=== PATIENT | male | born 1950 | race Caucasian/White ===

== ENCOUNTER 2016-10-15 06:50 | Day surgery (SDC) | payer MEDICARE, OTHER ==
[2016-10-11 11:35] VITALS: BMI 27.7
[~2016-10-15 06:50] MED LIST: LACTATED RINGERS 1,000 ML IV SCH; LIDOCAINE 1% 20 ML VIAL (10MG/ML) FOR IV START INTRADERMA PRN
[2016-10-15 07:10] VITALS: TEMP 97
[2016-10-15] MEDS ORDERED: PROPOFOL 10 MG/ML 20 ML VIAL IV ONE (07:43)
--- NOTE | 2016-10-15 07:56 | P.GSHP ---
History of Present Illness H&P Date: 10/15/16 Chief Complaint: History of colon polyps This is a 66-year-old male who presents today for colonoscopy. Patient's. History of colon polyps. His last colonoscopy was 3 years ago. Past Medical History Past Medical History: Coronary Artery Disease (CAD), Cancer, Diabetes Mellitus, Hyperlipidemia, Hypertension, Osteoarthritis (OA), Sleep Apnea/CPAP/BIPAP Additional Past Medical History / Comment(s): C-PAP , SKIN CANCER History of Any Multi-Drug Resistant Organisms: None Reported Past Surgical History: Hernia Repair, Tonsillectomy Additional Past Surgical History / Comment(s): COLONOSCOPY , HIATAL HERNIA REPAIR , TATI CARPAL TUNNEL RELEASE , ARTHROSCOPIC RIGHT SHOULDER Past Anesthesia/Blood Transfusion Reactions: No Reported Reaction Past Psychological History: Anxiety, Depression Additional Psychological History / Comment(s): "OCD" Smoking Status: Former smoker Past Alcohol Use History: Rare Additional Past Alcohol Use History / Comment(s): STARTED SMOKING AT AGE 10 QUIT AT AGE 42 SMOKED 2PPD Past Drug Use History: None Reported - Past Family History Brother(s) Family Medical History: Cancer Medications and Allergies Home Medications Medication Instructions Recorded Confirmed Type Aspirin EC [Ecotrin Low Dose] 81 mg PO DAILY 10/11/16 10/15/16 History Atorvastatin [Lipitor] 20 mg PO HS 10/11/16 10/15/16 History Finasteride [Proscar] 5 mg PO DAILY 10/11/16 10/15/16 History Glimepiride [Amaryl] 1 mg PO AC-[id number] 10/11/16 10/15/16 History Levothyroxine Sodium [Synthroid] 50 mcg PO DAILY 10/11/16 10/15/16 History Terazosin HCl [Hytrin] 10 mg PO HS 10/11/16 10/15/16 History buPROPion HCL [Wellbutrin XL] 150 mg PO DAILY 10/11/16 10/15/16 History fluvoxaMINE MALEATE [Fluvoxamine 100 mg PO DAILY 10/11/16 10/15/16 History Maleate] metFORMIN HCL 1,000 mg PO BID 10/11/16 10/15/16 History Allergies Allergy/AdvReac Type Severity Reaction Status Date / Time No Known Allergies Allergy Verified 10/11/16 10:55 Surgical - Exam Vital Signs Temp Pulse Resp BP Pulse Ox 97.0 F L 88 20 139/72 95 10/15/16 07:05 10/15/16 07:05 10/15/16 07:05 10/15/16 07:05 10/15/16 07:05 - General well developed, no distress - Eyes PERRL - ENT normal pinna - Neck no masses - Respiratory normal expansion - Cardiovascular Rhythm: regular - Abdomen Abdomen: soft, non tender Assessment and Plan Plan: History of colon polyps. We'll perform colonoscopy.
--- NOTE | 2016-10-15 08:08 | P.OP ---
Date of Procedure: 10/15/16 Preoperative Diagnosis: History of colonic Polyps Postoperative Diagnosis: Rectal polyp Mild diverticulosis Procedure(s) Performed: Colonoscopy Implants: Anesthesia: MAC Surgeon: William Barnett Pathology: other (Rectal polyp) Condition: stable Disposition: PACU Indications for Procedure: Operative Findings: Description of Procedure: The patient's placed on the endoscopy table lateral position. He received IV sedation. Digital rectal exam was performed which revealed no abnormalities. The prostate was symmetric without nodules. The flexible colonoscope was then placed patient anus and passed throughout the entire colon. The ileocecal valve was visualized. The cecum, ascending and transverse colon appeared normal. In the descending and sigmoid colon there is mild diverticulosis. Scope was then brought back the rectum and a small sessile polyp seen this removed with a forcep. Scope was withdrawn for patient.
[2016-10-15 08:25] VITALS: BP 115/65; PULSE 78; RESP 16
--- NOTE | 2016-10-15 08:46 | P.OP ---
Date of Procedure: 10/15/16 Preoperative Diagnosis: Cholecystitis Postoperative Diagnosis: Cholecystitis Procedure(s) Performed: Laparoscopic cholecystectomy Implants: Anesthesia: EVELYNE Surgeon: William Barnett Estimated Blood Loss (ml): 5 Pathology: other (Gallbladder) Condition: stable Disposition: PACU Indications for Procedure: Operative Findings: Description of Procedure: The patient was placed on the operating table. The patient received a general endotracheal tube anesthesia. The patients abdomen was prepped and draped in the usual sterile fashion. Through an infraumbilical stab incision, the fascia of the anterior abdominal wall was grasped with a pair of Kochers and then the Veress needle was placed in the peritoneal cavity. Position of the Veress needle was confirmed with positive drop test. The abdomen was then insufflated. After adequate insufflation, the 10 mm trocar was placed in the peritoneal cavity. Following this the laparoscope was placed in the peritoneal cavity. The patient was placed in the head-up, right side up position and then a 5 mm trocar was placed in the right lateral and right subcostal position under direct visualization. A 8 mm trocar was placed in the epigastric position. The gallbladder was grasped in the fundus and infundibulum. Traction on the gallbladder was placed in the lateral and the cephalad positions. The triangle of Calot was visualized.. The cystic duct was bluntly dissected until the union of the cystic duct and common bile duct was seen. The cystic duct was then divided and sealed with the Harmonic scissors. A PDS Endoloop was then placed throughout the cystic duct stump. The cystic artery divided and sealed with the Harmonic scissors. The gallbladder was then removed from the liver bed using Harmonic scissors. The gallbladder was then extracted through the epigastric port site. Operative field was checked for any bleeding spots and Harmonic scissors was used to coagulate the liver bed. The abdomen was irrigated. The trocars were removed. The skin was closed using interrupted 3-0 Vicryl suture. Dermabond dressing were applied. The patient tolerated the procedure well.
== END 2016-10-15 08:53 | disposition home or self-care (01) ==
LOC: ORWHC2ENDO 06:50
PROVIDERS: ATTEND Surgery
DX: Z12.11 Encounter for screening for malignant neoplasm of colon (principal); K57.30 Diverticulosis of large intestine without perforation or abscess without bleeding; K62.1 Rectal polyp; Z86.010 Personal history of colon polyps; I25.10 Atherosclerotic heart disease of native coronary artery without angina pectoris; I10 Essential (primary) hypertension; Z87.891 Personal history of nicotine dependence; E78.5 Hyperlipidemia, unspecified; G47.33 Obstructive sleep apnea (adult) (pediatric); Z99.89 Dependence on other enabling machines and devices; E11.9 Type 2 diabetes mellitus without complications; Z79.84 Long term (current) use of oral hypoglycemic drugs; E07.9 Disorder of thyroid, unspecified; F32.9 Major depressive disorder, single episode, unspecified; F41.9 Anxiety disorder, unspecified; Z79.82 Long term (current) use of aspirin; Z79.899 Other long term (current) drug therapy
CPT/HCPCS: 45380; J2704; 88305

== ENCOUNTER 2023-04-06 17:07 | Inpatient (IN) | payer MEDICARE, OTHER ==
--- NOTE | 2023-04-06 17:17 | ED ---
Recheck HPI - General Chief Complaint: Fall Stated Complaint: L1 Fracture Time Seen by Provider: 04/06/23 17:10 Source: patient, EMS, RN notes reviewed, old records reviewed Mode of arrival: EMS Limitations: no limitations - History of Present Illness Initial Comments: This is a 72-year-old male the ER today. Patient accepted in transfer from outside facility for evaluation after a fall. Patient has reported L1 burst fracture and is transferred for back surgical evaluationT patient has back pain but is improved here in the ER patient has back pain but is improved here in the ER patient allegedly had a fall MD Complaint: other (L1 burst fracture) -: hour(s) (L1 burst fracture) Returns Today for: persistent/worsening pain related to initial visit Symptoms Since Prior Visit: worsening pain Context: planned re-check Associated Symptoms: none Treatments Prior to Arrival: Given Pain Meds on - Related Data Home Medications Medication Instructions Recorded Confirmed Aspirin EC [Ecotrin Low Dose] 81 mg PO DAILY 10/11/16 04/06/23 Atorvastatin [Lipitor] 20 mg PO HS 10/11/16 04/06/23 Finasteride [Proscar] 5 mg PO DAILY 10/11/16 04/06/23 Levothyroxine Sodium [Synthroid] 50 mcg PO DAILY 10/11/16 04/06/23 Terazosin HCl [Hytrin] 10 mg PO HS 10/11/16 04/06/23 buPROPion HCL [Wellbutrin XL] 150 mg PO DAILY 10/11/16 04/06/23 fluvoxaMINE MALEATE [Fluvoxamine 100 mg PO DAILY 10/11/16 04/06/23 Maleate] metFORMIN HCL [Glucophage] 1,000 mg PO DAILY 10/11/16 04/06/23 Pioglitazone [Actos] 30 mg PO DAILY 04/06/23 04/06/23 Previous Rx's Medication Instructions Recorded Cyclobenzaprine [Flexeril] 5 mg PO TID #21 tablet 04/11/23 HYDROcodone/APAP 7.5-325MG [[place] 1 tab PO Q6HR PRN #28 tab 04/11/23 7.5-325] Sennosides/Docusate Sodium [Senna 1 each PO DAILY #20 capsule 04/11/23 Plus 8.6-50 mg Softgel] cefaDROXiL [Duricef] 500 mg PO Q12HR 5 Days #10 cap 04/11/23 Allergies Allergy/AdvReac Type Severity Reaction Status Date / Time No Known Allergies Allergy Verified 04/06/23 19:48 Review of Systems ROS Statement: Those systems with pertinent positive or pertinent negative responses have been documented in the HPI. ROS Other: All systems not noted in ROS Statement are negative. Past Medical History Past Medical History: Coronary Artery Disease (CAD), Cancer, Diabetes Mellitus, Hyperlipidemia, Hypertension, Osteoarthritis (OA), Sleep Apnea/CPAP/BIPAP Additional Past Medical History / Comment(s): C-PAP , SKIN CANCER History of Any Multi-Drug Resistant Organisms: None Reported Past Surgical History: Hernia Repair, Tonsillectomy Additional Past Surgical History / Comment(s): COLONOSCOPY , HIATAL HERNIA REPAIR , TATI CARPAL TUNNEL RELEASE , ARTHROSCOPIC RIGHT SHOULDER Past Anesthesia/Blood Transfusion Reactions: No Reported Reaction Past Psychological History: Anxiety, Depression Past Alcohol Use History: Rare Past Drug Use History: None Reported - Past Family History Brother(s) Family Medical History: Cancer General Exam Limitations: no limitations General appearance: alert, in no apparent distress Head exam: Present: atraumatic, normocephalic, normal inspection Eye exam: Present: normal appearance, PERRL, EOMI. Absent: scleral icterus, con junctival injection, periorbital swelling ENT exam: Present: normal exam, mucous membranes moist Neck exam: Present: normal inspection. Absent: tenderness, meningismus, lymphadenopathy Respiratory exam: Present: normal lung sounds bilaterally. Absent: respiratory distress, wheezes, rales, rhonchi, stridor Cardiovascular Exam: Present: regular rate, normal rhythm, normal heart sounds. Absent: systolic murmur, diastolic murmur, rubs, gallop, clicks GI/Abdominal exam: Present: soft, normal bowel sounds. Absent: distended, tenderness, guarding, rebound, rigid Extremities exam: Present: normal inspection, full ROM, normal capillary refill. Absent: tenderness, pedal edema, joint swelling, calf tenderness Back exam: Present: normal inspection Neurological exam: Present: alert, oriented X3, CN II-XII intact Psychiatric exam: Present: normal affect, normal mood Skin exam: Present: warm, dry, intact, normal color. Absent: rash Course Vital Signs 04/06/23 04/06/23 04/06/23 17:10 18:23 19:54 Temperature 97.9 F Pulse Rate 116 H 96 102 H Respiratory 18 18 18 Rate Blood Pressure 131/68 123/69 109/70 O2 Sat by Pulse 93 L 94 L 95 Oximetry 04/06/23 21:02 Temperature 97.9 F Pulse Rate 94 Respiratory 16 Rate Blood Pressure 134/73 O2 Sat by Pulse 95 Oximetry - Reevaluation(s) Reevaluation #1: 04/06/23 18:56 Medical records reviewed Reevaluation #2: 04/06/23 18:56 Patient's back pain is improved Reevaluation #3: 04/06/23 18:56 Patient informed of results and questions answered Reevaluation #4: Was pt. sent in by a medical professional or institution (, MINO, AGRICULTURAL RESEARCH DIRECTOR, urgent care, hospital, or half-way...) When possible be specific @ -no Did you speak to anyone other than the patient for history (EMS, parent, family, police, friend...)? What history was obtained from this source @ -no Did you review nursing and triage notes (agree or disagree)? Why? @ -agree Are old charts reviewed (outside hosp., previous admission, EMS record, old EKG, old radiological studies, urgent care reports/EKG's, half-way records)? Report findings @ -yes Differential Diagnosis (chest pain, altered mental status, abdominal pain women, abdominal pain men, vaginal bleeding, weakness, fever, dyspnea, syncope, headache, dizziness, GI bleed, back pain, seizure, CVA, palpatations, mental health, musculoskeletal)? @ -prior EKG interpreted by me (3pts min.). @ -yes X-rays interpreted by me (1pt min.). @ -no CT interpreted by me (1pt min.). @ -no U/S interpreted by me (1pt. min.). @ -no What testing was considered but not performed or refused? (CT, X-rays, U/S, labs)? Why? @ -none What meds were considered but not given or refused? Why? @ -none Did you discuss the management of the patient with other professionals (professionals i.e. MINO Ferrer, AGRICULTURAL RESEARCH DIRECTOR, lab, RT, psych nurse, manager social responsibility, pipe smoking machine operator, teacher, toxics program officer, test case developer)? Give summary @ -no Was smoking cessation discussed for >3mins.? @ -no Was critical care preformed (if so, how long)? @ -no Were there social determinants of health that impacted care today? How? (Homelessness, low income, unemployed, alcoholism, drug addiction, transportation, low edu. Level, literacy, decrease access to med. care, halfway, rehab)? @ -none Was there de-escalation of care discussed even if they declined (Discuss DNR or withdrawal of care, Hospice)? DNR status @ -no What co-morbidities impacted this encounter? (DM, HTN, Smoking, COPD, CAD, Cancer, CVA, ARF, Chemo, Hep., AIDS, mental health diagnosis, sleep apnea, morbid obesity)? @ -none Was patient admitted / discharged? Hospital course, mention meds given and route, prescriptions, significant lab abnormalities, going to OR and other pertinent info. @ - 72 male will be admitted to orthopedic surgery under trauma evaluation after fall with lumbar 1 burst fracture Admitted Undiagnosed new problem with uncertain prognosis? @ -no Drug Therapy requiring intensive monitoring for toxicity (Heparin, Nitro, Insulin, Cardizem)? @ -no Were any procedures done? @ -no Diagnosis/symptom? @ -Back pain, burst fracture L1 Acute, or Chronic, or Acute on Chronic? @ -Acute Uncomplicated (without systemic symptoms) or Complicated (systemic symptoms)? @ -Complicated Side effects of treatment? @ -no Exacerbation, Progression, or Severe Exacerbation? @ -exacerbation Poses a threat to life or bodily function? How? (Chest pain, USA, SC, pneumonia, PE, COPD, DKA, ARF, appy, cholecystitis, CVA, Diverticulitis, Homicidal, Suicidal, threat to staff... and all critical care pts) @ -no Reevaluation #5: Differential Back Pain: Strain, zoster, cauda equina syndrome, epidural abscess, vertebral osteomyelitis, discitis, fracture, subluxation, disc herniation, DJD, spinal stenosis, dissection, AAA, pancreatitis, peptic ulcer disease, pyelonephritis, kidney stone, this is not meant to be an all-inclusive list. - Consultations Consultation #1: Spoke with Dr. Goodman randhawa prior to transfer who did agree to admit the patient to himself as part of trauma evaluation secondary to fall Medical Decision Making - Medical Decision Making 72 male will be admitted to orthopedic surgery under trauma evaluation after fall with lumbar 1 burst fracture - Lab Data Result diagrams: 04/10/23 05:12 04/10/23 05:12 Lab Results 04/07/23 04/07/23 04/07/23 Range/Units 05:33 05:33 05:50 WBC 6.87 (4.50-10.00) X 10*3/uL RBC 3.69 L (4.40-5.60) X 10*6/uL Hgb 11.2 L (13.0-17.0) g/dL Hct 35.3 L (39.6-50.0) % MCV 95.7 (80.0-97.0) FL MCH 30.4 (27.0-32.0) pg MCHC 31.7 L (32.0-37.0) g/dL RDW 15.1 H (11.5-14.5) % Plt Count 155 (140-440) X 10*3/uL MPV 11.1 (9.5-12.2) FL Immature Gran % (Auto) 0.30 % Absolute Nucleated RBC 0 % Neutrophils % 71.4 % Lymphocytes % 16.7 % Monocytes % 9.8 % Eosinophils % 1.2 % Basophils % 0.6 % Immature Gran # 0.02 (0.00-0.04) X 10*3/uL Neutrophils # 4.91 (1.80-7.70) X 10*3/uL Lymphocytes # 1.15 (0.90-5.00) X 10*3/uL Monocytes # 0.67 (0.20-1.00) X 10*3/uL Eosinophils # 0.08 (0.04-0.35) X 10*3/uL Basophils # 0.04 (0.00-0.10) X 10*3/uL NRBC/100 WBC Diff 0 (0.00-0.01) X 10*3/uL Sodium 138 (135-145) mmol/L Potassium 4.1 (3.5-5.5) mmol/L Chloride 105 (96-109) mmol/L Carbon Dioxide 26.6 (21.6-31.8) mmol/L Anion Gap 6.40 (4.00-12.00) mmol/L BUN 13.3 (9.0-27.0) mg/dL Creatinine 0.9 (0.6-1.5) mg/dL Est GFR (CKD-EPI) 90 (>=60) Est GFR (CKD-EPI)AfAm (>60 ml/min/1.73 sqM) Est GFR (CKD-EPI)NonAf (>60 ml/min/1.73 sqM) BUN/Creatinine Ratio 14.78 (12.00-20.00) Ratio Glucose 102 (70-110) mg/dL POC Glucose (mg/dL) 105 (70-110) mg/dL POC Glu Core Shaper ID Dayana, Kalib Calcium 8.7 (8.7-10.3) mg/dL Phosphorus 3.5 (2.4-5.1) mg/dL Magnesium 1.8 (1.5-2.4) mg/dL Total Bilirubin 0.5 (0.3-1.2) mg/dL AST 22 (14-35) U/L ALT 25 (10-49) U/L Alkaline Phosphatase 71 (41-126) U/L Total Protein 5.7 L (6.2-8.2) g/dL Albumin 3.8 (3.8-4.9) g/dL Globulin 1.9 (1.6-3.3) g/dL Albumin/Globulin Ratio 2.00 (1.60-3.17) Ratio Blood Type Confirm 04/07/23 04/07/23 04/07/23 Range/Units 11:35 16:40 20:50 WBC (4.50-10.00) X 10*3/uL RBC (4.40-5.60) X 10*6/uL Hgb (13.0-17.0) g/dL Hct (39.6-50.0) % MCV (80.0-97.0) FL MCH (27.0-32.0) pg MCHC (32.0-37.0) g/dL RDW (11.5-14.5) % Plt Count (140-440) X 10*3/uL MPV (9.5-12.2) FL Immature Gran % (Auto) % Absolute Nucleated RBC % Neutrophils % % Lymphocytes % % Monocytes % % Eosinophils % % Basophils % % Immature Gran # (0.00-0.04) X 10*3/uL Neutrophils # (1.80-7.70) X 10*3/uL Lymphocytes # (0.90-5.00) X 10*3/uL Monocytes # (0.20-1.00) X 10*3/uL Eosinophils # (0.04-0.35) X 10*3/uL Basophils # (0.00-0.10) X 10*3/uL NRBC/100 WBC Diff (0.00-0.01) X 10*3/uL Sodium (135-145) mmol/L Potassium (3.5-5.5) mmol/L Chloride (96-109) mmol/L Carbon Dioxide (21.6-31.8) mmol/L Anion Gap (4.00-12.00) mmol/L BUN (9.0-27.0) mg/dL Creatinine (0.6-1.5) mg/dL Est GFR (CKD-EPI) (>=60) Est GFR (CKD-EPI)AfAm (>60 ml/min/1.73 sqM) Est GFR (CKD-EPI)NonAf (>60 ml/min/1.73 sqM) BUN/Creatinine Ratio (12.00-20.00) Ratio Glucose (70-110) mg/dL POC Glucose (mg/dL) 109 116 H 137 H (70-110) mg/dL POC Glu Core Shaper STARLA Hines, Ebony Hines, Opal Farah Calcium (8.7-10.3) mg/dL Phosphorus (2.4-5.1) mg/dL Magnesium (1.5-2.4) mg/dL Total Bilirubin (0.3-1.2) mg/dL AST (14-35) U/L ALT (10-49) U/L Alkaline Phosphatase (41-126) U/L Total Protein (6.2-8.2) g/dL Albumin (3.8-4.9) g/dL Globulin (1.6-3.3) g/dL Albumin/Globulin Ratio (1.60-3.17) Ratio Blood Type Confirm 04/08/23 04/08/23 04/08/23 Range/Units 05:47 11:27 11:27 WBC 6.5 (4.50-10.00) X 10*3/uL RBC 3.82 L (4.40-5.60) X 10*6/uL Hgb 11.6 L (13.0-17.0) g/dL Hct 36.3 L (39.6-50.0) % MCV 95.0 (80.0-97.0) FL MCH 30.5 (27.0-32.0) pg MCHC 32.1 (32.0-37.0) g/dL RDW 13.8 (11.5-14.5) % Plt Count 151 (140-440) X 10*3/uL MPV 8.3 (9.5-12.2) FL Immature Gran % (Auto) % Absolute Nucleated RBC % Neutrophils % 68 % Lymphocytes % 20 % Monocytes % 6 % Eosinophils % 2 % Basophils % 0 % Immature Gran # (0.00-0.04) X 10*3/uL Neutrophils # 4.4 (1.80-7.70) X 10*3/uL Lymphocytes # 1.3 (0.90-5.00) X 10*3/uL Monocytes # 0.4 (0.20-1.00) X 10*3/uL Eosinophils # 0.2 (0.04-0.35) X 10*3/uL Basophils # 0.0 (0.00-0.10) X 10*3/uL NRBC/100 WBC Diff (0.00-0.01) X 10*3/uL Sodium 137 (135-145) mmol/L Potassium 4.0 (3.5-5.5) mmol/L Chloride 105 (96-109) mmol/L Carbon Dioxide 27 (21.6-31.8) mmol/L Anion Gap 5 (4.00-12.00) mmol/L BUN 13 (9.0-27.0) mg/dL Creatinine 0.79 (0.6-1.5) mg/dL Est GFR (CKD-EPI) (>=60) Est GFR (CKD-EPI)AfAm >90 (>60 ml/min/1.73 sqM) Est GFR (CKD-EPI)NonAf 89 (>60 ml/min/1.73 sqM) BUN/Creatinine Ratio (12.00-20.00) Ratio Glucose 103 H (70-110) mg/dL POC Glucose (mg/dL) 111 H (70-110) mg/dL POC Glu Core Shaper ID Dayana, Kalib Calcium 8.9 (8.7-10.3) mg/dL Phosphorus (2.4-5.1) mg/dL Magnesium (1.5-2.4) mg/dL Total Bilirubin (0.3-1.2) mg/dL AST (14-35) U/L ALT (10-49) U/L Alkaline Phosphatase (41-126) U/L Total Protein (6.2-8.2) g/dL Albumin (3.8-4.9) g/dL Globulin (1.6-3.3) g/dL Albumin/Globulin Ratio (1.60-3.17) Ratio Blood Type Confirm 04/08/23 04/08/23 Range/Units 11:27 12:20 WBC (4.50-10.00) X 10*3/uL RBC (4.40-5.60) X 10*6/uL Hgb (13.0-17.0) g/dL Hct (39.6-50.0) % MCV (80.0-97.0) FL MCH (27.0-32.0) pg MCHC (32.0-37.0) g/dL RDW (11.5-14.5) % Plt Count (140-440) X 10*3/uL MPV (9.5-12.2) FL Immature Gran % (Auto) % Absolute Nucleated RBC % Neutrophils % % Lymphocytes % % Monocytes % % Eosinophils % % Basophils % % Immature Gran # (0.00-0.04) X 10*3/uL Neutrophils # (1.80-7.70) X 10*3/uL Lymphocytes # (0.90-5.00) X 10*3/uL Monocytes # (0.20-1.00) X 10*3/uL Eosinophils # (0.04-0.35) X 10*3/uL Basophils # (0.00-0.10) X 10*3/uL NRBC/100 WBC Diff (0.00-0.01) X 10*3/uL Sodium (135-145) mmol/L Potassium (3.5-5.5) mmol/L Chloride (96-109) mmol/L Carbon Dioxide (21.6-31.8) mmol/L Anion Gap (4.00-12.00) mmol/L BUN (9.0-27.0) mg/dL Creatinine (0.6-1.5) mg/dL Est GFR (CKD-EPI) (>=60) Est GFR (CKD-EPI)AfAm (>60 ml/min/1.73 sqM) Est GFR (CKD-EPI)NonAf (>60 ml/min/1.73 sqM) BUN/Creatinine Ratio (12.00-20.00) Ratio Glucose (70-110) mg/dL POC Glucose (mg/dL) 92 (70-110) mg/dL POC Glu Core Shaper ID Makayla Clark Calcium (8.7-10.3) mg/dL Phosphorus (2.4-5.1) mg/dL Magnesium (1.5-2.4) mg/dL Total Bilirubin (0.3-1.2) mg/dL AST (14-35) U/L ALT (10-49) U/L Alkaline Phosphatase (41-126) U/L Total Protein (6.2-8.2) g/dL Albumin (3.8-4.9) g/dL Globulin (1.6-3.3) g/dL Albumin/Globulin Ratio (1.60-3.17) Ratio Blood Type Confirm A Negative Disposition Clinical Impression: Fall, Lumbar burst fracture, Fracture of first lumbar vertebra Disposition: ADMITTED IP TO THIS [facility] Condition: Good Is patient prescribed a controlled substance at d/c from ED?: No Time of Disposition: 17:35
[2023-04-06] MEDS ORDERED: NALOXONE 0.4 MG/ML 1 ML VIAL IV PRN (17:35)
[2023-04-06] MEDS: ONDANSETRON 4 MG/2 ML VIAL IVP PRN (18:24)
[2023-04-06] MEDS: SODIUM CHLORIDE 0.9% 1,000 ML IV SCH (18:31)
[2023-04-06] MEDS: HYDROmorphone 0.5 MG/0.5 ML SYRINGE IVP PRN (21:11)
--- NOTE | 2023-04-06 23:00 | P.CONS ---
History of Present Illness - Reason for Consult Consult date: 04/06/23 Medical management - Chief Complaint Lumbar burst fracture/fall - History of Present Illness 72-year-old male, history of CAD, hypertension, hyperlipidemia, diabetes mellitus, sleep apnea, presents to the ER today. Patient accepted in transfer from outside facility for evaluation after a fall. Patient has reported L1 burst fracture and is transferred for back surgical evaluationT patient has back pain but is improved here in the ER patient has back pain but is improved here in the ER patient allegedly had a fall --In the outside facility workup revealed burst fracture of first lumbar vert ebra -- Patient was discussed with orthopedic surgery and was transferred to our facility for further treatment Review of Systems REVIEW OF SYSTEMS: CONSTITUTIONAL: No fever, no malaise, no fatigue. HEENT: No recent visual problems or hearing problems. Denied any sore throat. CARDIOVASCULAR: No chest pain, orthopnea, PND, no palpitations, no syncope. PULMONARY: No shortness of breath, no cough, no hemoptysis. GASTROINTESTINAL: No diarrhea, no nausea, no vomiting, no abdominal pain. NEUROLOGICAL: No headaches, no weakness, no numbness. HEMATOLOGICAL: Denies any bleeding or petechiae. GENITOURINARY: Denies any burning micturition, frequency, or urgency. MUSCULOSKELETAL/RHEUMATOLOGICAL: Denies any joint pain, swelling, or any muscle pain. ENDOCRINE: Denies any polyuria or polydipsia. The rest of the 14-point review of systems is negative. Past Medical History Past Medical History: Coronary Artery Disease (CAD), Cancer, Diabetes Mellitus, Hyperlipidemia, Hypertension, Osteoarthritis (OA), Sleep Apnea/CPAP/BIPAP Additional Past Medical History / Comment(s): C-PAP , SKIN CANCER History of Any Multi-Drug Resistant Organisms: None Reported Past Surgical History: Hernia Repair, Tonsillectomy Additional Past Surgical History / Comment(s): COLONOSCOPY , HIATAL HERNIA REPAIR , TATI CARPAL TUNNEL RELEASE , ARTHROSCOPIC RIGHT SHOULDER Past Anesthesia/Blood Transfusion Reactions: No Reported Reaction Past Psychological History: Anxiety, Depression Past Alcohol Use History: Rare Past Drug Use History: None Reported - Past Family History Brother(s) Family Medical History: Cancer Medications and Allergies Home Medications Medication Instructions Recorded Confirmed Type Aspirin EC [Ecotrin Low Dose] 81 mg PO DAILY 10/11/16 04/06/23 History Atorvastatin [Lipitor] 20 mg PO HS 10/11/16 04/06/23 History Finasteride [Proscar] 5 mg PO DAILY 10/11/16 04/06/23 History Levothyroxine Sodium [Synthroid] 50 mcg PO DAILY 10/11/16 04/06/23 History Terazosin HCl [Hytrin] 10 mg PO HS 10/11/16 04/06/23 History buPROPion HCL [Wellbutrin XL] 150 mg PO DAILY 10/11/16 04/06/23 History fluvoxaMINE MALEATE [Fluvoxamine 100 mg PO DAILY 10/11/16 04/06/23 History Maleate] metFORMIN HCL [Glucophage] 1,000 mg PO DAILY 10/11/16 04/06/23 History Pioglitazone [Actos] 30 mg PO DAILY 04/06/23 04/06/23 History Allergies Allergy/AdvReac Type Severity Reaction Status Date / Time No Known Allergies Allergy Verified 04/06/23 19:48 Physical Exam Vitals: Vital Signs Temp Pulse Pulse Resp BP BP Pulse Ox 04/06/23 21:24 97.9 F 108 H 18 126/70 96 04/06/23 21:02 97.9 F 94 16 134/73 95 04/06/23 19:54 102 H 18 109/70 95 04/06/23 18:23 96 18 123/69 94 L 04/06/23 17:10 97.9 F 116 H 18 131/68 93 L Intake and Output 04/06/23 04/06/23 04/06/23 06:59 14:59 22:59 Other: Weight 89.358 kg General appearance: alert, in no apparent distress Head exam: Present: atraumatic, normocephalic, normal inspection Eye exam: Present: normal appearance, PERRL, EOMI. Absent: scleral icterus, conjunctival injection, periorbital swelling ENT exam: Present: normal exam, mucous membranes moist Neck exam: Present: normal inspection. Absent: tenderness, meningismus, lymphadenopathy Respiratory exam: Present: normal lung sounds bilaterally. Absent: respiratory distress, wheezes, rales, rhonchi, stridor Cardiovascular Exam: Present: regular rate, normal rhythm, normal heart sounds. Absent: systolic murmur, diastolic murmur, rubs, gallop, clicks GI/Abdominal exam: Present: soft, normal bowel sounds. Absent: distended, tenderness, guarding, rebound, rigid Extremities exam: Present: normal inspection, full ROM, normal capillary refill. Absent: tenderness, pedal edema, joint swelling, calf tenderness Back exam: Present: normal inspection Neurological exam: Present: alert, oriented X3, CN II-XII intact Psychiatric exam: Present: normal affect, normal mood Skin exam: Present: warm, dry, intact, normal color. Absent: rash Assessment and Plan Assessment: 1. Fall/burst fracture L1 --Patient received IV Dilaudid in ED for pain control -Orthopedic surgery is consulted 2. Hyperlipidemia; Lipitor 20 mg p.o. nightly 3. Hypothyroidism; thyroxine 50 mcg daily 4. Hypertension; Hytrin 10 mg p.o. nightly 5. Urinary retention; Proscar 5 mg daily; Hytrin 10 mg p.o. nightly 6. Depression/anxiety; patient takes Wellbutrin XL 150 mg daily, Luvox 100 mg daily DVT prophylaxis; SCDs CODE STATUS;
[2023-04-07 05:53] LABS: Glucose,Whole Blood 105 mg/dL (70-110)
[2023-04-07] MEDS: LEVOTHYROXINE 50 MCG TAB PO SCH (06:40)
[2023-04-07] MEDS ORDERED: HYDROmorphone 1 MG/ML 1 ML SYRINGE IVP PRN (07:19)
[2023-04-07] MEDS ORDERED: SENNOSIDES 8.6 MG TAB PO PRN (07:27)
--- NOTE | 2023-04-07 07:27 | P.HPOR ---
History of Present Illness H&P Date: 04/07/23 Chief Complaint: Fall with trauma, increased back pain, L1 burst fracture History of Presenting Illness Patient is a pleasant 72-year-old male who was transferred to the ER from [facility] due to L1 burst fracture after a fall. Patient reports he was standing on a chair to change the battery and a smoke detector and his leg gave out and he fell backwards landing on his back and hitting his head. Patient reports he is unsure of loss of consciousness. Patient states that he did injure his left ankle, imaging taken at [facility] is negative for any fracture. Patient denies any numbness or tingling to the bilateral lower extremities. Patient lives at home with his spouse and is normally independent. Patient does have a past medical history of CAD, hypertension, hyperlipidemia, diabetes, sleep apnea with use of CPAP, and skin cancer. Patient does have orthopedic history of a right shoulder surgery. Patient seen and examined this morning. Patient is resting currently in bed. He does report increased pain in his lower back with any activity. Pain medications will be adjusted. Patient continues to deny any numbness or tingling to bilateral lower extremities. Patient does present with mild edema to the left ankle. Patient remains nothing by mouth since midnight for possible surgical intervention. [employer] found disc of imaging that was taken at [facility]. This has not been uploaded at this time. Repeat Lumbar CT will be obtained. Patient verbalizes understanding. Review of Systems Pertinent positives and negatives as discussed in HPI, a complete review of systems was performed and all other systems are negative. Physical Examination General: The patient is awake and alert, in no acute distress Skin: Skin is warm and dry with no obvious rashes or lesions. Eye: Pupils are equal, round and reactive to light, extra-ocular movements are intact; there is normal conjunctiva bilaterally. Neck: The neck is supple, there is no tenderness and ROM intact. Cardiovascular: There is a regular rate and rhythm. No murmur, rub or gallop is appreciated. Respiratory: Lungs are clear to auscultation, respirations are non-labored, breath sounds are equal. Gastrointestinal: Soft, non-distended, non-tender abdomen. Back: There is moderate to severe tenderness to palpation in the midline lumbar region. There is no obvious deformity. Musculoskeletal: ROM limited secondary to pain and stiffness. Shoulder abduction 5/5, elbow flexors 5/5, wrist dorsiflexors 5/5. finger abductor 5/5, network controller 5/5, hip flexor 5/5, knee flexor 5/5, ankle dorsiflexor 5/5, ankle plantarflexion 5/5 and extensor hallucis 5/5. Neurological: CN 2-12 intact. There are no obvious motor or sensory deficits. Movement and coordination equal and intact. Sensory exam to light touch intact C5-T1 and intact from L2-S1. Reflexes 2/4 in bilateral upper and lower extremities. Negative Hoffmans, babinski, and clonus signs. Psychiatric: Cooperative, appropriate mood & affect, normal judgment. Assessment and Plan Fall with trauma L1 burst fracture Increased back pain Left ankle pain Multiple medical comorbidities 1. Appreciate medical management 2. Prescription for LSO brace placed in chart. 3. CT scan of the Thoracic and Lumbar Spine has been ordered. 3. Pain management - IV dilaudid, [place] 7.5mg 4. GI prophylaxis - senna 5. DVT prophylaxis - mechanical 6. PT/OT - weightbearing as tolerated with a walker as needed. 7. Appreciate consult I reviewed and discussed this case with my attending Dr. Beebe, whom has reviewed this chart and films and is in agreement with assessment and plan of care as outlined above. I have personally seen and examined the patient, performed the documentation and the assessment and plan as written. Number of minutes spent on the visit: 20m. Past Medical History Past Medical History: Coronary Artery Disease (CAD), Cancer, Diabetes Mellitus, Hyperlipidemia, Hypertension, Osteoarthritis (OA), Sleep Apnea/CPAP/BIPAP Additional Past Medical History / Comment(s): C-PAP , SKIN CANCER History of Any Multi-Drug Resistant Organisms: None Reported Past Surgical History: Hernia Repair, Tonsillectomy Additional Past Surgical History / Comment(s): COLONOSCOPY , HIATAL HERNIA REPAIR , TATI CARPAL TUNNEL RELEASE , ARTHROSCOPIC RIGHT SHOULDER Past Anesthesia/Blood Transfusion Reactions: No Reported Reaction Past Psychological History: Anxiety, Depression Past Alcohol Use History: Rare Past Drug Use History: None Reported - Past Family History Brother(s) Family Medical History: Cancer Medications and Allergies Home Medications Medication Instructions Recorded Confirmed Type Aspirin EC [Ecotrin Low Dose] 81 mg PO DAILY 10/11/16 04/06/23 History Atorvastatin [Lipitor] 20 mg PO HS 10/11/16 04/06/23 History Finasteride [Proscar] 5 mg PO DAILY 10/11/16 04/06/23 History Levothyroxine Sodium [Synthroid] 50 mcg PO DAILY 10/11/16 04/06/23 History Terazosin HCl [Hytrin] 10 mg PO HS 10/11/16 04/06/23 History buPROPion HCL [Wellbutrin XL] 150 mg PO DAILY 10/11/16 04/06/23 History fluvoxaMINE MALEATE [Fluvoxamine 100 mg PO DAILY 10/11/16 04/06/23 History Maleate] metFORMIN HCL [Glucophage] 1,000 mg PO DAILY 10/11/16 04/06/23 History Pioglitazone [Actos] 30 mg PO DAILY 04/06/23 04/06/23 History Allergies Allergy/AdvReac Type Severity Reaction Status Date / Time No Known Allergies Allergy Verified 04/06/23 19:48
[2023-04-07] MEDS: buPROPion XL 150 MG TAB.ER.24H PO SCH (07:56)
[2023-04-07] MEDS: FINASTERIDE 5 MG TAB PO SCH (07:56)
--- NOTE | 2023-04-07 09:13 | CT ---
EXAMINATION TYPE: CT thor lumbar spine wo con CT DLP: 1607.6 mGycm, Automated exposure control for dose reduction was used. DATE OF EXAM: 04/07/2023 8:41 AM CLINICAL INDICATION:Male, 72 years old with history of fracture; L1 fracture, weakness COMPARISON: None TECHNIQUE: Axial images of the thoracic and lumbar spine were obtained without contrast. Coronal and sagittal reformats were performed. CT Contrast: Contrast used: mL of , none. Oral contrast used: none. FINDINGS: Multilevel degeneration changes throughout the spine. There is facet joint arthropathy, vacuum disc p henomena, Schmorl's nodes and disc space narrowing. The posterior superior and endplate of the L1 jhonathan tebrae demonstrates fracture with mild retropulsion up to 5 mm. This results in moderate spinal canal stenosis at this level. No other fractures are visualized. There is bridging syndesmophytes extendin g throughout the thoracic spine. Scattered neural foraminal stenosis throughout the visualized spine worse at L3-4 with moderate to severe and L2-L3 with severe stenosis. Facet joint arthropathy neural foraminal stenosis worse at L2-L3, L3-L4 and L4-L5 with moderate to severe bilateral stenosis. There is severe arthrosis of the spinous processes. No additional acute fractures visualized. Severe atherosclerotic severe arterial vasculature. Fusiform annual dilation of the infrarenal aorta and multiple areas.. IMPRESSION: 1. L1 vertebral body superior posterior endplate fracture with 5 mm retropulsion. There is moderate spinal canal stenosis. 2. 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 3. Evidence of diffuse idiopathic skeletal hyperostosis.
[2023-04-07 09:57] LABS: Basophils # (A) 0.04 X 10*3/uL (0.00-0.10); Basophils % (A) 0.6 %; Eosinophils # (A) 0.08 X 10*3/uL (0.04-0.35); Eosinophils % (A) 1.2 %; HCT 35.3 % (39.6-50.0); HGB 11.2 g/dL (13.0-17.0); Lymphocytes # (A) 1.15 X 10*3/uL (0.90-5.00); Lymphocytes % (A) 16.7 %; MCH 30.4 pg (27.0-32.0); MCHC 31.7 g/dL (32.0-37.0); MCV 95.7 FL (80.0-97.0); Mean Platelet Volume 11.1 FL (9.5-12.2); Monocytes # (A) 0.67 X 10*3/uL (0.20-1.00); Monocytes % (A) 9.8 %; NRBC Per 100 WBC 0 X 10*3/uL (0.00-0.01); Neutrophils # (A) 4.91 X 10*3/uL (1.80-7.70); Neutrophils % (A) 71.4 %; Platelet Count 155 X 10*3/uL (140-440); RBC 3.69 X 10*6/uL (4.40-5.60); RDW 15.1 % (11.5-14.5); WBC 6.87 X 10*3/uL (4.50-10.00)
[2023-04-07 10:02] LABS: BUN/Creat Ratio 14.78 Ratio (12.00-20.00); Blood Urea Nitrogen 13.3 mg/dL (9.0-27.0); Chloride 105 mmol/L (96-109); Glucose 102 mg/dL (70-110); Magnesium 1.8 mg/dL (1.5-2.4); Potassium 4.1 mmol/L (3.5-5.5); Sodium 138 mmol/L (135-145)
[2023-04-07 10:03] LABS: ALT 25 U/L (10-49); AST 22 U/L (14-35); Albumin 3.8 g/dL (3.8-4.9); Alkaline Phosphatase 71 U/L (41-126); Calcium 8.7 mg/dL (8.7-10.3); Carbon Dioxide 26.6 mmol/L (21.6-31.8); Globulin 1.9 g/dL (1.6-3.3); Phosphorus 3.5 mg/dL (2.4-5.1); Total Bilirubin 0.5 mg/dL (0.3-1.2); Total Protein 5.7 g/dL (6.2-8.2)
[2023-04-07] MEDS: HYDROcodone/APAP 7.5-325MG 1 EACH TAB PO PRN (11:19)
[2023-04-07 11:37] LABS: Glucose,Whole Blood 109 mg/dL (70-110)
[2023-04-07 16:41] LABS: Glucose,Whole Blood 116 mg/dL (70-110)
[2023-04-07] MEDS: ATORVASTATIN 20 MG TAB PO SCH (20:30)
[2023-04-07] MEDS: DOXAZOSIN 4 MG TAB PO SCH (20:30)
[2023-04-07 20:56] LABS: Glucose,Whole Blood 137 mg/dL (70-110)
[2023-04-08 05:49] LABS: Glucose,Whole Blood 111 mg/dL (70-110)
--- NOTE | 2023-04-08 11:06 | P.PN ---
Subjective Progress Note Date: 04/08/23 Evaluated by orthopedic surgery, surgical repair pending. Complains of back and right hip pain denies chest pain, palpitations or shortness of breath. Denies numbness or tingling. Afebrile. Denies chest pain, palpitations or shortness of breath. Maintaining O2 sats in the low 90s on room air. Blood sugars controlled. IV fluids running at 130 an hour, hypertensive-will decrease. Objective - Vital Signs Vital signs: Vital Signs Temp 97.7 F 04/08/23 07:43 Pulse 89 04/08/23 07:43 Resp 16 04/08/23 07:43 BP 155/79 04/08/23 07:43 Pulse Ox 82 L 04/08/23 07:43 FiO2 Intake & Output 04/07/23 04/08/23 04/08/23 18:59 06:59 18:59 Output Total 850 Balance -850 Output: Urine 850 Other: Voiding Method Urinal # Voids 6 # Bowel Movements 0 - Exam PHYSICAL EXAM: VITAL SIGNS: [As above] GENERAL: Sitting up in bed, no acute distress HEENT: Normocephalic, conjunctivae normal. eyes normal. MMM. NECK: Supple, no JVD. CARDIOVASCULAR: S1, S2 regular. No murmur RESPIRATION: Unlabored, equal air entry ,breath sounds diminished in the bases. ABDOMEN: Soft, nondistended, nontender . No guarding. +BS. LEGS: No edema. no swelling PSYCHIATRY: Alert and oriented X3, mood and affect normal. NERVOUS SYSTEM: Cranial N 2-12 grossly normal. No focal deficits. strength and sensation grossly intact. Skin: Warm and dry, no rash - Labs CBC & Chem 7: 04/08/23 11:27 04/08/23 11:27 Labs: Abnormal Lab Results - Last 24 Hours (Table) 04/07/23 04/07/23 04/08/23 Range/Units 16:40 20:50 05:47 POC Glucose (mg/dL) 116 H 137 H 111 H (70-110) mg/dL Assessment and Plan Assessment: Fall with trauma, increased back pain ,right hip pain, left ankle pain L1 burst fracture Atelectasis Diabetes mellitus CAD Hypertension Hyperlipidemia Osteoarthritis Sleep apnea, wears CPAP Former nicotine dependence, 2 pack a day x 22 years Suspect COPD Anxiety Depression Plan: Continue on current medication regimen, monitoring and symptomatic treatment. Aggressive pulmonary toileting with incentive spirometer reinforced, nebulized bronchodilators both scheduled and as needed along with long-acting beta agonist ordered, in a patient with significant history of prior nicotine dependence. Hypertensive, IV fluids decreased. NovoLog sliding scale ordered with close monitoring of Accu-Cheks. surgical repair pending. Pain management and DVT prophylaxis as per primary. Thank you for the consult. The impression and plan of care has been dictated as directed. : I performed a history and examination of this patient, discussed the same with the dictator. I agree with the dictator's note ,documented as a scribe. Any additional findings or plans will be noted.
[2023-04-08 12:09] LABS: Basophils % (A) 0 %; Eosinophils # (A) 0.2 k/uL (0-0.7); Eosinophils % (A) 2 %; HCT 36.3 % (39.0-53.0); HGB 11.6 gm/dL (13.0-17.5); Lymphocytes # (A) 1.3 k/uL (1.0-4.8); Lymphocytes % (A) 20 %; MCH 30.5 pg (25.0-35.0); MCHC 32.1 g/dL (31.0-37.0); Mean Platelet Volume 8.3; Monocytes # (A) 0.4 k/uL (0-1.0); Monocytes % (A) 6 %; Neutrophils # (A) 4.4 k/uL (1.3-7.7); Neutrophils % (A) 68 %; Platelet Count 151 k/uL (150-450); RBC 3.82 m/uL (4.30-5.90); RDW 13.8 % (11.5-15.5); WBC 6.5 k/uL (3.8-10.6)
[2023-04-08 12:24] LABS: Glucose,Whole Blood 92 mg/dL (70-110)
[2023-04-08 12:24] LABS: African American GFR (CKD) >90 (>60 ml/min/1.73 sqM); Anion Gap 5 mmol/L; Blood Urea Nitrogen 13 mg/dL (9-20); Calcium 8.9 mg/dL (8.4-10.2); Carbon Dioxide 27 mmol/L (22-30); Chloride 105 mmol/L (98-107); Glucose 103 mg/dL (74-99); Non-African American GFR(CKD) 89 (>60 ml/min/1.73 sqM); Sodium 137 mmol/L (137-145)
--- NOTE | 2023-04-08 13:23 | P.PN ---
Subjective Progress Note Date: 04/08/23 Principal diagnosis: Fall with trauma L1 burst fracture Increased back pain Patient seen and examined this morning. Patient is resting currently in bed. He does report increased back pain with any activity. He states his pain is better controlled on current medication regimen. Attempted to assist patient to the bedside to assess his ability to tolerate activity, patient did not tolerate very well. Informed patient that we could proceed with surgical intervention to fix his L1 fracture with stabilization. Patient verbalizes understanding and agrees with proceeding with surgery. Dr. Beebe is unavailable to proceed with surgery today, it has been scheduled for tomorrow 04/09/2023. Patient may eat today, he will be nothing by mouth at midnight. Encouraged patient to use incentive spirometer while awake. No acute concerns. Objective - Vital Signs Vital signs: Vital Signs Temp 97.7 F 04/08/23 07:43 Pulse 89 04/08/23 07:43 Resp 16 04/08/23 07:43 BP 155/79 04/08/23 07:43 Pulse Ox 82 L 04/08/23 07:43 FiO2 Intake & Output 04/07/23 04/08/23 04/08/23 18:59 06:59 18:59 Output Total 850 Balance -850 Output: Urine 850 Other: Voiding Method Urinal # Voids 6 # Bowel Movements 0 - Exam General: The patient is awake and alert, in no acute distress Skin: Skin is warm and dry with no obvious rashes or lesions. Eye: Pupils are equal, round and reactive to light, extra-ocular movements are intact; there is normal conjunctiva bilaterally. Neck: The neck is supple, there is no tenderness and ROM intact. Cardiovascular: There is a regular rate and rhythm. No murmur, rub or gallop is appreciated. Respiratory: Lungs are clear to auscultation, respirations are non-labored, breath sounds are equal. Gastrointestinal: Soft, non-distended, non-tender abdomen. Back: There is moderate to severe tenderness to palpation in the midline lumbar region. There is no obvious deformity. Musculoskeletal: ROM limited secondary to pain and stiffness. Shoulder abduction 5/5, elbow flexors 5/5, wrist dorsiflexors 5/5. finger abductor 5/5, corrections officer 5/5, hip flexor 4/5, knee flexor 5/5, ankle dorsiflexor 5/5, ankle plantarflexion 5/5 and extensor hallucis 5/5. Neurological: CN 2-12 intact. There are no obvious motor or sensory deficits. Movement and coordination equal and intact. Sensory exam to light touch intact C5-T1 and intact from L2-S1. Reflexes 2/4 in bilateral upper and lower extremities. Negative Hoffmans, babinski, and clonus signs. Psychiatric: Cooperative, appropriate mood & affect, normal judgment. - Labs CBC & Chem 7: 04/08/23 11:27 04/08/23 11:27 Labs: Abnormal Lab Results - Last 24 Hours (Table) 04/07/23 04/07/23 04/07/23 Range/Units 05:33 05:33 16:40 RBC 3.69 L (4.40-5.60) X 10*6/uL Hgb 11.2 L (13.0-17.0) g/dL Hct 35.3 L (39.6-50.0) % MCHC 31.7 L (32.0-37.0) g/dL RDW 15.1 H (11.5-14.5) % POC Glucose (mg/dL) 116 H (70-110) mg/dL Total Protein 5.7 L (6.2-8.2) g/dL 04/07/23 04/08/23 Range/Units 20:50 05:47 RBC (4.40-5.60) X 10*6/uL Hgb (13.0-17.0) g/dL Hct (39.6-50.0) % MCHC (32.0-37.0) g/dL RDW (11.5-14.5) % POC Glucose (mg/dL) 137 H 111 H (70-110) mg/dL Total Protein (6.2-8.2) g/dL Assessment and Plan Assessment: Fall with trauma L1 burst fracture Increased back pain Left ankle pain Multiple medical comorbidities Plan: - Appreciate medical management -NPO at [place], surgery scheduled for tomorrow 04/09/23; Open fixation of L1 fracture with T12-L2 stabilization - Prescription for LSO brace placed in chart. - Pain management - IV dilaudid, [place] 7.5mg, Flexeril - GI prophylaxis - senna - DVT prophylaxis - SCDs, TEDS - PT/OT - weightbearing as tolerated with a walker as needed. - Appreciate consult I reviewed and discussed this case with my attending Dr. Beebe, whom has reviewed this chart and films and is in agreement with assessment and plan of care as outlined above. I have personally seen and examined the patient, performed the documentation and the assessment and plan as written. Number of minutes spent on the visit: 20m.
[2023-04-08] MEDS ORDERED: IPRATROPIUM-ALBUTEROL 3 ML NEB INHALATION PRN (15:22)
[2023-04-08] MEDS ORDERED: DEXTROSE 50% SYRINGE 50 ML IVP PRN ×2 (15:24)
[2023-04-08] MEDS: SYMBICORT 80-4.5 MCG INHALER INHALATION SCH (15:45)
[2023-04-08] MEDS: IPRATROPIUM-ALBUTEROL 3 ML NEB INHALATION SCH (15:49)
[2023-04-08] MEDS: PANTOPRAZOLE 40 MG/10 ML VIAL IVP SCH (16:41)
[2023-04-08 16:48] LABS: Glucose,Whole Blood 97 mg/dL (70-110)
[2023-04-08] MEDS: INSULIN ASPART (NovoLOG) 100 UNIT/ML VIAL SQ SCH (17:59)
[2023-04-08 20:49] LABS: Glucose,Whole Blood 137 mg/dL (70-110)
[2023-04-08] MEDS: CYCLOBENZAPRINE 5 MG TAB PO PRN (22:13)
[2023-04-09 05:35] LABS: Glucose,Whole Blood 97 mg/dL (70-110)
[2023-04-09] MEDS ORDERED: TRANEXAMIC 1,000 MG/100ML-NACL 1,000 MG in SALINE 1 100ML.BAG IVPB PRN (06:00)
[2023-04-09] MEDS: LACTATED RINGERS 400 ML IV ONE (09:53)
[2023-04-09 11:55] LABS: Glucose,Whole Blood 98 mg/dL (70-110)
[2023-04-09 14:38] LABS: Glucose,Whole Blood 97 mg/dL (70-110)
--- NOTE | 2023-04-09 14:40 | P.PN ---
Subjective Progress Note Date: 04/09/23 Evaluated by orthopedic surgery, surgical repair pending. Complains of back and right hip pain denies chest pain, palpitations or shortness of breath. Denies numbness or tingling. Afebrile. Denies chest pain, palpitations or shortness of breath. Maintaining O2 sats in the low 90s on room air. Blood sugars controlled. IV fluids running at 130 an hour, hypertensive-will decrease. 04/09/2023 NPO, maintained on gentle IV fluid hydration, scheduled for surgery today. Denies chest pain, palpitations or shortness of breath. Denies chills cough or congestion. Reports difficulty sleeping in hospital. Pain currently controlled. Objective - Vital Signs Vital signs: Vital Signs Temp 98.0 F 04/09/23 06:57 Pulse 82 04/09/23 14:29 Resp 16 04/09/23 14:29 BP 168/72 04/09/23 14:29 Pulse Ox 95 04/09/23 14:29 FiO2 Intake & Output 04/08/23 04/09/23 04/09/23 18:59 06:59 18:59 Output Total 775 600 Balance -775 -600 Output: Urine 775 600 Other: Voiding Method Urinal - Exam PHYSICAL EXAM: VITAL SIGNS: [As above] GENERAL: Alert and oriented x 3, sitting up in bed, no acute distress HEENT: Normocephalic, conjunctivae normal. NECK: Supple, no JVD. CARDIOVASCULAR: S1, S2 regular. No murmur RESPIRATION: Unlabored, equal air entry , bibasilar bases diminished. ABDOMEN: Soft, nondistended, nontender . No guarding. +BS. LEGS: No edema. no swelling NERVOUS SYSTEM: Cranial N 2-12 grossly normal. No focal deficits. strength and sensation grossly intact. Skin: Warm and dry, no rash - Labs CBC & Chem 7: 04/08/23 11:27 04/08/23 11:27 Labs: Abnormal Lab Results - Last 24 Hours (Table) 04/08/23 04/09/23 Range/Units 20:47 05:58 POC Glucose (mg/dL) 137 H (70-110) mg/dL Hemoglobin A1c 6.3 H (<=6.0) % Assessment and Plan Assessment: Fall with trauma, increased back pain ,right hip pain, left ankle pain L1 burst fracture Atelectasis Diabetes mellitus, hemoglobin A1c 6.3 CAD Hypertension Hyperlipidemia Osteoarthritis Sleep apnea, wears CPAP Former nicotine dependence, 2 pack a day x 22 years Suspect COPD Anxiety Depression Plan: Continue on current medication regimen, monitoring and symptomatic treatment. NPO, OR pending. Pain management and DVT prophylaxis as per primary. Maintain aggressive pulmonary toileting with incentive spirometer reinforced, nebulized bronchodilators and LABA. Hypertensive. Tight blood sugar control with lose monitoring of Accu-Cheks. The impression and plan of care has been dictated as directed. : I performed a history and examination of this patient, discussed the same with the dictator. I agree with the dictator's note ,documented as a scribe. Any additional findings or plans will be noted.
[2023-04-09] MEDS: LACTATED RINGERS 1,000 ML IV ONE ×2 (14:55)
--- NOTE | 2023-04-09 15:00 | P.PN ---
Progress Note - Text Progress Note Date: 04/09/23 Spine Surgery Clinical and Risk Review Lizandro Nielsen is a 72 yo male presenting for evaluation of low back pain after fall off chair at home. He was attempting to change a batter in his smoke detector when he slipped and fell back onto his back and buttock region about 3 ft. Immediate pain and difficulty with ambulation due to pain after. No numbness/tingling or bowel bladder issues noted at this time. He was transferred from [facility] to us for treatment. It was my pleasure to have seen and examined Lizandro Nielsen . In our visit today we have had a chance to go over subjective complaints, physical examination findings and treatments including the natural course history without intervention and various interventional options. The patients imaging demonstrates L1 AO A4 burst fracture with moderate stenosis due to fragment migration, extension of fracture posteriorly into left pedicle. No apparent disc involvement but likely posterior element involvement. No other fractures noted. Local kyphosis due to fracture and deformity. On physical exam, Lizandro Nielsen demonstrates Severe pain with palpation of the L1 region midline and paraspinal. Pt cannot ambulate due to pain, he has not been able to participate in PT with bracing or medications. He has pain with any movement in bed. He states no numbness, tingling. There is 5/5 strength in UE and LE b/l. SILT C5-T1 and L2-S2. Neg hoffmans, Neg clonus, Neg babinski. No tensioning signs. Distal pulses intact. REmainder of exam is stable. I have explained to the patient that as their condition progresses it will cause further neurological deficits and eventual paralysis. Based on the patients imaging, physical exam, and the rapid progression and disabling nature of their symptoms, at this time I recommend surgery in the form or a: OPEN TREATMENT OF L1 FRACTURE WITH T12-L2 STABILIZATION I discussed the risk and benefits of this procedure at length with Lizandro Nielsen . The patient [significant other] agreed to considered pursuing the procedure abovementioned. Prior to surgery, she should follow up with her PCP (Cardio, ID, IM etc) for clearance. Questions were invited and answered, and the patient wishes to proceed as outlined below. Currently, I am recommendin. OPEN TREATMENT L1 FRACTURE WITH T12-L2 STABILIZATION 2. Follow up with PCP for surgical clearance 3. Review of surgical risks and benefits as well as an educational packet on the proposed surgical procedure. Risks: All surgical procedures come with inherent risks, including those related to positioning, anesthesia, intraoperative findings, and postoperative complications. It is important to understand that surgery does not come with any guarantee of a successful outcome as complications and adverse events are always possible. The patient was given a handout in office today discussing the surgical procedure and risks associated with the intervention, both of which were discussed with the patient. These risks include but are not limited to the following: * Experiencing same, different or even worse symptoms in back, neck, arms, or legs compared to before surgery. * Requiring further surgery or other forms of treatment presently or at some time in the future at same or other levels of the intended spine surgery. * On an extreme but fortunately relatively rare basis severe complication such as blindness, stroke, heart attack, temporary and/or permanent nerve injury, paralysis, coma, or may occur, sometimes without known expl anation. * Surgical complications may include but are not limited to risk of infection, fluid accumulation in the surgical dissection site, including a seroma or hematoma, that requires additional surgery, wound drainage, bleeding, new numbness or weakness, vision changes/loss, spinal fluid leakage, non-healing and/or infected incision, headaches, difficulty or inability to swallow, hoarseness, hemopneumothorax, pneumothorax, impotence, retrograde ejaculation, vaginal dryness; injury to nerves, spinal cord, blood vessels, lymphatics or other vital organs (i.e., bowel injury, injury to the great vessels); heterotopic bone formation; complications related to the hardware such as screws, rods, cages including misplaced hardware, device failure, instrumentation at the wrong spine level, hardware fracture/breakage, or hardware loosening; vertebral failure of the spinal column above or below the newly placed hardware; retained surgical instrumentations or devices and the need for further surgery. * Medical risks of the planned spine surgery include but are not limited to generalized Infections to the whole body or local areas outside of the surgical site (sepsis), heart attack, bleeding, anaphylaxis, meningitis, seizure, epilepsy, hearing loss, burn lopez, laceration of the head or other areas of the body, bruising, hypersensitivity of the skin, bladder over distension; allergic reaction; shoulder injury related to positioning; fat, blood and air clots to other areas of the body like heart, lungs, brain; failure of internal organs such as lungs, kidneys, liver and excessive bleeding. If blood transfusions are necessary, note that transfusions may cause intolerance reactions such as anaphylaxis or other complex reactions. * Despite best efforts, the results of spine surgery might not heal in terms of bone, soft tissues such as skin, fascia, ligaments, and joints. Additionally, in order to achieve best possible results, spine surgery may be carried out beyond the initially planned levels and involve decompression, fusion including insertion of hardware at levels other than the original intended area of surgical interest change some portions of the procedure in order to ensure the best possible outcomes. * With spine surgery and spinal fusion, there are different off label uses of instrumentation (devices, implants and hardware) as well as biological lópez bstances (bone morphogenic proteins, demineralized bone matrix) as well as using extra bone from allograft sources (i.e. cadaver bone) or autograft (iliac crest bone, ribs, or the spine itself). The patient has been given information about these practices and their inherent risks and benefits. The patient has had a chance to review all the listed information, has been given print outs detailing this information, and has had all his/her questions answered to their satisfaction. It was my pleasure to have seen and examined Lizandro Nielsen . In our visit today we have had a chance to go over my understanding of our patient's current condition, the natural course history without intervention and various interventional options. Questions were invited and answered, and the patient wishes to proceed as outlined above. I have seen and examined the patient for 25 minutes and we have spent more than 50% of the time in repeat and detailed counseling about the patient's condition, its natural course history with out and as much as can be predicted with surgery and re-review of various surgical treatment options. In conclusion, Lizandro Nielsen and [his/her spouse/partner] requested we proceed with the above suggested surgery and are willing to accept risks and limitations of the suggested surgery as nature of the disease process and our best attempts at treatment for the condition. Thank you again for allowing us to be part of your patient's care. Please don't hesitate to contact me if you have any further questions. Signed and authenticated by: M[facility] [address] [facility], [address] [address]
[2023-04-09] MEDS ORDERED: MIDAZOLAM 2 MG/2 ML VIAL ONE (15:54)
[2023-04-09] MEDS ORDERED: ACETAMINOPHEN IV (For NPO) 1,000 MG/100 ML VIAL ONE (15:54)
[2023-04-09] MEDS ORDERED: ROCURONIUM 10 MG/ML (5 ML VIAL) IV ONE (15:54)
[2023-04-09] MEDS ORDERED: LIDOCAINE 1% INJ 10MG/ML (20 ML MDV) ONE (15:54)
[2023-04-09] MEDS ORDERED: PROPOFOL 10 MG/ML 20 ML VIAL IV ONE (15:54)
[2023-04-09] MEDS ORDERED: SUCCINYLCHOLINE CHLORIDE 200 MG/10 ML VIAL IV ONE (15:54)
[2023-04-09] MEDS ORDERED: TRANEXAMIC 1,000 MG/100ML-NACL PREMIX BAG ONE (15:54)
[2023-04-09] MEDS ORDERED: fentaNYL (PF) 50 MCG/ML 2 ML AMP ONE (15:54)
[2023-04-09] MEDS: IOPAMIDOL M200 10 ML VIAL MISCELLANE ONE (16:37)
[2023-04-09] MEDS: GELATIN SPONGE,ABSORB (LARGE) 1 EACH SPONGE TOPICAL ONE (16:37)
[2023-04-09] MEDS: THROMBIN (BOVINE) 5,000 UNIT VIAL TOPICAL ONE (16:37)
[2023-04-09] MEDS: LIDOCAINE 2%-EPI 1:100,000 20 ML VIAL SQ ONE (17:43)
[2023-04-09] MEDS: BUPIVACAINE (PF) 0.5% 30 ML VIAL SQ ONE (17:44)
[2023-04-09] MEDS ORDERED: HYDROcodone/APAP 5-325MG 1 EACH TAB PO PRN (17:56)
[2023-04-09] MEDS ORDERED: MAGNESIUM HYDROXIDE 2,400 MG/30 ML CUP PO PRN (17:56)
--- NOTE | 2023-04-09 17:59 | P.OP ---
Date of Procedure: 04/09/23 Preoperative Diagnosis: 1. AO TYPE A4 BURST FRACTURE L1 WITH POSTERIOR EXTENSION AND DISC COMPROMISE T12-L1 2. LOW BACK PAIN 3. S/P FALL OFF CHAIR AT HOME Postoperative Diagnosis: 1. AO TYPE A4 BURST FRACTURE L1 WITH POSTERIOR EXTENSION AND DISC COMPROMISE T12-L1 2. LOW BACK PAIN 3. S/P FALL OFF CHAIR AT HOME Procedure(s) Performed: 1. OPEN TREATMENT L1 FRACTURE 2. T12-L2 STABILIZATION 3. L1 BIOPSY WITH REDUCTION OF FRACTURE AND INSERTION OF YOGI SPINE LES SYSTEM BILATERAL 4. USE OF YOGI NAVIGATION FOR SCREW PLACEMENT AND SPINE LES PLACEMENT USE OF IONM ALL SCREWS TESTING >20 mA EXPECTED CODES: 93169, 97980, 54353/50, 32068, 73667 Implants: YOGI SPINE LES SYSTEM X2 YOGI EVEREST MIS AMAURI AND SCREW SYSTEM Anesthesia: GETA Surgeon: Mk Beebe Quality Analyst/Technical Writer #1: Praveen Chan (WAS PRESENT AND ASSISTED WITH ALL ASPECTS OF THE CASE FROM POSITION TO CLOSURE) Estimated Blood Loss (ml): 100 IV fluids (ml): 1,100 Urine output (ml): 350 Pathology: other (L1 VERTEBRAL BODY) Condition: stable Disposition: PACU Indications for Procedure: Lizandro Nielsen is a 72 yo male presenting for evaluation of low back pain after fall off chair at home. He was attempting to change a batter in his smoke detector when he slipped and fell back onto his back and buttock region about 3 ft. Immediate pain and difficulty with ambulation due to pain after. No numbness/tingling or bowel bladder issues noted at this time. He was transferred from [facility] to us for treatment. It was my pleasure to have seen and examined Lizandro Nielsen . In our visit today we have had a chance to go over subjective complaints, physic al examination findings and treatments including the natural course history without intervention and various interventional options. The patients imaging demonstrates L1 AO A4 burst fracture with moderate stenosis due to fragment migration, extension of fracture posteriorly into left pedicle. No apparent disc involvement but likely posterior element involvement. No other fractures noted. Local kyphosis due to fracture and deformity. On physical exam, Lizandro Nielsen demonstrates Severe pain with palpation of the L1 region midline and paraspinal. Pt cannot ambulate due to pain, he has not been able to participate in PT with bracing or medications. He has pain with any movement in bed. He states no numbness, tingling. There is 5/5 strength in UE and LE b/l. SILT C5-T1 and L2-S2. Neg hoffmans, Neg clonus, Neg babinski. No tensioning signs. Distal pulses intact. REmainder of exam is stable. I have explained to the patient that as their condition progresses it will cause further neurological deficits and eventual paralysis. Based on the patients imaging, physical exam, and the rapid progression and disabling nature of their symptoms, at this time I recommend surgery in the form or a: OPEN TREATMENT OF L1 FRACTURE WITH T12-L2 STABILIZATION I discussed the risk and benefits of this procedure at length with Lizandro Nielsen . The patient [significant other] agreed to considered pursuing the procedure abovementioned. Prior to surgery, she should follow up with her PCP (Cardio, ID, IM etc) for clearance. Questions were invited and answered, and the patient wishes to proceed as outlined below. Currently, I am recommendin. OPEN TREATMENT L1 FRACTURE WITH T12-L2 STABILIZATION Description of Procedure: ORIF L1, T12-L2 stabilization with L1 spine les (JAG, SP CLAMP, OPEN) The patient was seen and examined in the preoperative area. All preoperative protocols were followed. Informed consent was obtained, risks and benefits of the procedure were discussed at length. Risks including bleeding infection damage to the surrounding tissue and risk of reoperation were discussed with the patient. Risk of anesthesia up to and including was discussed with the patient. These are outlined in the risk review. They were willing to accept these risks and all of the risks of surgery. The patient was given a weight- based dose of antibiotics in the form of 2 g Ancef. The patient was seen and evaluated by the anesthesia team who deemed them fit for surgery. The site was marked, the patient was willing to proceed with the procedure. The patient was transferred to the operative suite by the Department of anesthesia. They were then drifted off to sleep by the department anesthesia and GETA was performed. The patient tolerated this well. [Cintron catheter was placed by nursing staff, atraumatically]. Once confirmation of lines and ventilation the patient was transferred to a [prone Trav table very carefully]. All bony prominences including wrists, elbows, axilla, chest, hips, and thighs, and feet were padded very well. Special attention was paid to the genitalia and these were padded accordingly. SCDs were placed on bilateral lower extremities and were connected. Arms were well padded and placed [on arm boards up and out in the 90/90 position]. Once in position, again we confirmed good ventilation capabilities and that lines were running appropriately. The patient's thoracolumbar spine was then exposed. 1010s were placed outlining the incision site. Standard alcohol was used to clean the incision site and allowed to dry. C-arm was used to needle localize and then biomark the patient and confirm level for incision which was marked with a skin marker. Operative briefing was performed with all teams and everyone in agreement to proceed. The patient was then prepped and draped in a normal sterile fashion. Timeout was then performed and all parties were in agreement with the procedure to be performed. Midline skin incision was made over the L1 region and dissection taken down over the SP of L1 and lamina. Tracker was placed over this area and secured to the SP of L1. Z drape was placed and a 3D intraoperative Zhiem spin was taken of the area. Once then was registered and confirmed to be accurate, a navigated Jamshidi and drill guide were used to target pedicles bilaterally at T12, L1 and L2. Once targeted a wire was placed and the targeting device removed. Wires were then visualized under AP and lateral imaging confirmed good placement. Pedicles of L1 were then targeted bilaterally and wires placed for the Spine Les system. Drill was passed and a biopsy taken of the L1 vertebral body. The trial was then placed and confirmed under AP to be in good position. Spine Les was then inserted bilaterally and expanded sequentially showing good reduction of the fracture at L1 with height taoist. This was then filled with cement without extravasation, myelogram or arteriogram. We then navigated screws over wires into position in the levels indicated above. The screws were tested and all tested above 20 mA. AP and lateral confirmed good placement of screws. We then sized and selected rods for the area rods were then placed subfascially through the tulips of each screw. Set screws were then placed and all screws to secure the rods bilaterally. Set screws were then final tightened and tabs broken off the screws. Final imaging confirmed good placement of rods and screws, good reduction and stabilization. We irrigated the wounds thoroughly with normal sterile saline. Tracker was removed. Final Zhiem spin was done to confirm screw placement and all screws were safe. The deep fascia was closed with 0 Vicryl superficial subcu closed with 2-0 Vicryl and skin closed with skin keiry the wound edges approximated very well. wounds were then cleaned and sterilely dressed without dressings. The patient was transferred back to their hospital bed atraumatically. Patient was then awakened and extubated by the department of anesthesia having tolerated the procedure very well with no complications. They were transferred to the postoperative care unit in stable condition.
[2023-04-09] MEDS: HYDROmorphone 0.5 MG/0.5 ML SYRINGE IVP ONE ×2 (18:11→18:25)
[2023-04-09 18:59] LABS: Glucose,Whole Blood 142 mg/dL (70-110)
[2023-04-09 20:36] LABS: Glucose,Whole Blood 132 mg/dL (70-110)
--- NOTE | 2023-04-09 20:58 | XR ---
EXAMINATION TYPE: XR lumbar spine 2 or 3V, FL guidance operating room DATE OF EXAM: 04/09/2023 Comparison: None Clinical History: 72-year-old male LUMBAR FUSION Findings: T12-L2 FUSION, L1 KYPHO 1 MIN 11 SEC FL 6814.97 cGycm2 DAP 10 images submitted. Impression: Intraoperative fluoroscopy as above.
[2023-04-09] MEDS: MELATONIN 3 MG TABLET PO SCH (21:02)
[2023-04-09] MEDS: ACETAMINOPHEN TAB 325 MG TAB PO SCH (21:34)
[2023-04-10 05:49] LABS: Glucose,Whole Blood 123 mg/dL (70-110)
[2023-04-10] MEDS: HYDROcodone/APAP 10-325MG 1 EACH TAB PO PRN (08:39)
[2023-04-10 11:01] LABS: Basophils # (A) 0.02 X 10*3/uL (0.00-0.10); Basophils % (A) 0.3 %; Eosinophils # (A) 0.17 X 10*3/uL (0.04-0.35); Eosinophils % (A) 2.4 %; HCT 33.6 % (39.6-50.0); HGB 10.4 g/dL (13.0-17.0); Lymphocytes # (A) 0.94 X 10*3/uL (0.90-5.00); Lymphocytes % (A) 13.1 %; MCH 29.5 pg (27.0-32.0); MCV 95.5 FL (80.0-97.0); Mean Platelet Volume 11.4 FL (9.5-12.2); Monocytes # (A) 0.72 X 10*3/uL (0.20-1.00); NRBC Per 100 WBC 0 X 10*3/uL (0.00-0.01); Neutrophils % (A) 73.8 %; Platelet Count 146 X 10*3/uL (140-440); RBC 3.52 X 10*6/uL (4.40-5.60); RDW 14.7 % (11.5-14.5); WBC 7.18 X 10*3/uL (4.50-10.00)
[2023-04-10 11:15] LABS: BUN/Creat Ratio 16.62 Ratio (12.00-20.00); Blood Urea Nitrogen 13.3 mg/dL (9.0-27.0); Calcium 8.8 mg/dL (8.7-10.3); Carbon Dioxide 26.3 mmol/L (21.6-31.8); Chloride 103 mmol/L (96-109); Glucose 121 mg/dL (70-110); Potassium 4.1 mmol/L (3.5-5.5); Sodium 140 mmol/L (135-145)
[2023-04-10 11:29] LABS: Glucose,Whole Blood 225 mg/dL (70-110)
--- NOTE | 2023-04-10 15:00 | P.PN ---
Subjective Progress Note Date: 04/07/23 72-year-old male, history of CAD, hypertension, hyperlipidemia, diabetes mellitus, sleep apnea, presents to the ER today. Patient accepted in transfer from outside facility for evaluation after a fall. Patient has reported L1 burst fracture and is transferred for back surgical evaluationT patient has back pain but is improved here in the ER patient has back pain but is improved here in the ER patient allegedly had a fall --In the outside facility workup revealed burst fracture of first lumbar verteb ra -- Patient was discussed with orthopedic surgery and was transferred to our facility for further treatment Objective - Vital Signs Vital signs: Vital Signs Temp 97.9 F 04/06/23 21:24 Pulse 108 H 04/06/23 21:24 Resp 18 04/06/23 21:24 BP 126/70 04/06/23 21:24 Pulse Ox 96 04/06/23 21:24 FiO2 Intake & Output 04/06/23 04/06/23 04/07/23 06:59 18:59 06:59 Weight 89.358 kg 89.358 kg - Exam General appearance: alert, in no apparent distress Head exam: Present: atraumatic, normocephalic, normal inspection Eye exam: Present: normal appearance, PERRL, EOMI. Absent: scleral icterus, conjunctival injection, periorbital swelling ENT exam: Present: normal exam, mucous membranes moist Neck exam: Present: normal inspection. Absent: tenderness, meningismus, lym phadenopathy Respiratory exam: Present: normal lung sounds bilaterally. Absent: respiratory distress, wheezes, rales, rhonchi, stridor Cardiovascular Exam: Present: regular rate, normal rhythm, normal heart sounds. Absent: systolic murmur, diastolic murmur, rubs, gallop, clicks GI/Abdominal exam: Present: soft, normal bowel sounds. Absent: distended, tenderness, guarding, rebound, rigid Extremities exam: Present: normal inspection, full ROM, normal capillary refill. Absent: tenderness, pedal edema, joint swelling, calf tenderness Back exam: Present: normal inspection Neurological exam: Present: alert, oriented X3, CN II-XII intact Psychiatric exam: Present: normal affect, normal mood Skin exam: Present: warm, dry, intact, normal color. Absent: rash - Labs CBC & Chem 7: 04/10/23 05:12 04/10/23 05:12 Assessment and Plan Assessment: 1. Fall/burst fracture L1 --Patient received IV Dilaudid in ED for pain control -Orthopedic surgery is consulted 2. Hyperlipidemia; Lipitor 20 mg p.o. nightly 3. Hypothyroidism; thyroxine 50 mcg daily 4. Hypertension; Hytrin 10 mg p.o. nightly 5. Urinary retention; Proscar 5 mg daily; Hytrin 10 mg p.o. nightly 6. Depression/anxiety; patient takes Wellbutrin XL 150 mg daily, Luvox 100 mg daily DVT prophylaxis; SCDs CODE STATUS;
--- NOTE | 2023-04-10 15:08 | P.PN ---
Subjective Progress Note Date: 04/10/23 Principal diagnosis: 1. AO TYPE A4 BURST FRACTURE L1 WITH POSTERIOR EXTENSION AND DISC COMPROMISE T12-L1 2. LOW BACK PAIN 3. S/P FALL OFF CHAIR AT HOME Patient seen at bedside this morning lying semirecumbent position with present. Patient says he is having some intense back pain localized incisions from surgery. Patient says he has urinated several times since mcgregor was removed. Patient is eager to work with physical therapy earlier today. Patient denies any radiation of pain and says it is localized to the back. Patient says he does have a TLSO brace in his room. Patient denies chest pain, fever, shortness breath, nausea, vomiting, change in vision, loss of bladder control. Objective - Vital Signs Vital signs: Vital Signs Temp 97.5 F L 04/10/23 06:59 Pulse 80 04/10/23 08:53 Resp 18 04/10/23 06:59 BP 152/82 04/10/23 06:59 Pulse Ox 96 04/10/23 06:59 FiO2 Intake & Output 04/09/23 04/10/23 04/10/23 18:59 06:59 18:59 Intake Total 1150 350 Output Total 250 1300 Balance 900 -950 Weight 89.358 kg 89.358 kg Intake: IV 1150 350 Output: Urine 200 1300 Uretheral (Mcgregor) 400 Estimated Blood Loss 50 Other: Voiding Method Indwelling Catheter - Exam Palpation: There is moderate to severe tenderness to palpation in the midline lumbar region. There is no obvious deformity. Inspection: Silver foam dressing present over the lumbar spine. Dressings appear to be Clean, dry, intact. Serenity are well aligned and intact. Musculoskeletal: ROM limited secondary to pain and stiffness. Shoulder abduction 5/5, elbow flexors 5/5, wrist dorsiflexors 5/5. finger abductor 5/5, media coordinator 5/5, hip flexor 4/5, knee flexor 5/5, ankle dorsiflexor 5/5, ankle plantarflexion 5/5 and extensor hallucis 5/5. Neurological: CN 2-12 intact. There are no obvious motor or sensory deficits. Movement and coordination equal and intact. Sensory exam to light touch intact C5-T1 and intact from L2-S1. Reflexes 2/4 in bilateral upper and lower extremities. Negative Hoffmans, babinski, and clonus signs. - Labs CBC & Chem 7: 04/10/23 05:12 04/10/23 05:12 Labs: Abnormal Lab Results - Last 24 Hours (Table) 04/09/23 04/09/23 04/09/23 Range/Units 05:58 18:56 20:35 POC Glucose (mg/dL) 142 H 132 H (70-110) mg/dL Hemoglobin A1c 6.3 H (<=6.0) % 04/10/23 Range/Units 05:47 POC Glucose (mg/dL) 123 H (70-110) mg/dL Hemoglobin A1c (<=6.0) % Assessment and Plan Assessment: 1. AO TYPE A4 BURST FRACTURE L1 WITH POSTERIOR EXTENSION AND DISC COMPROMISE T12-L1 2. LOW BACK PAIN 3. S/P FALL OFF CHAIR AT HOME postoperative day 1 status post 1. OPEN TREATMENT L1 FRACTURE 2. T12-L2 STABILIZATION Plan: 1. AO TYPE A4 BURST FRACTURE L1 WITH POSTERIOR EXTENSION AND DISC COMPROMISE T 12-L1; LOW BACK PAIN; S/P FALL OFF CHAIR AT HOME - surgery performed yesterday, 04/09/2023 - OPEN TREATMENT L1 FRACTURE; T12-L2 STABILIZATION. patient stable at bedside this morning. Continue work with therapy daily brace on while up and about. Pain medication as needed. Plan for discharge home tomorrow with home care. 2. Appreciate medical management 3. Pain management - [place]; Flexeril; Tylenol 4. DVT prophylaxis - mechanical 5. GI prophylaxis - senna; Protonix; milk of magnesia 6. PT/OT - weightbearing as tolerated with walker and brace on while up and about 7. Encourage incentive spirometer use 8. Discharge planning - Plan for discharge home tomorrow with home care. Time with Patient: Less than 30
--- NOTE | 2023-04-10 15:40 | P.PN ---
Subjective Progress Note Date: 04/10/23 Evaluated by orthopedic surgery, surgical repair pending. Complains of back and right hip pain denies chest pain, palpitations or shortness of breath. Denies numbness or tingling. Afebrile. Denies chest pain, palpitations or shortness of breath. Maintaining O2 sats in the low 90s on room air. Blood sugars controlled. IV fluids running at 130 an hour, hypertensive-will decrease. 04/09/2023 NPO, maintained on gentle IV fluid hydration, scheduled for surgery today. Denies chest pain, palpitations or shortness of breath. Denies chills cough or congestion. Reports difficulty sleeping in hospital. Pain currently controlled. 04/10/2023 status post surgical repair. Positive pain. Denies numbness or tingling. denies nausea vomiting or diarrhea. Denies abdominal pain. Reports spontaneous voiding. PT pending. Denies chest pain, palpitations or shortness of breath. Afebrile, normal WBC. Blood sugars controlled. Objective - Vital Signs Vital signs: Vital Signs Temp 98.5 F 04/10/23 13:20 Pulse 76 04/10/23 15:25 Resp 18 04/10/23 13:20 BP 128/77 04/10/23 13:20 Pulse Ox 91 L 04/10/23 13:20 FiO2 Intake & Output 04/09/23 04/10/23 04/10/23 18:59 06:59 18:59 Intake Total 1150 350 Output Total 250 1300 200 Balance 900 -950 -200 Weight 89.358 kg 89.358 kg Intake: IV 1150 350 Output: Urine 200 1300 200 Uretheral (Cintron) 400 Estimated Blood Loss 50 Other: Voiding Method Indwelling Catheter # Voids 1 - Exam PHYSICAL EXAM: VITAL SIGNS: [As above] GENERAL: Alert and oriented x 3, sitting up in bed, no acute distress. HEENT: Normocephalic, conjunctivae normal. NECK: Supple, no JVD. CARDIOVASCULAR: S1, S2 regular. No murmur RESPIRATION: Unlabored, equal air entry , bibasilar bases diminished. ABDOMEN: Soft, nondistended, nontender . No guarding. +BS. LEGS: No edema. no swelling NERVOUS SYSTEM: Cranial N 2-12 grossly normal. No focal deficits. strength and sensation grossly intact. Skin: Warm and dry, no rash - Labs CBC & Chem 7: 04/10/23 05:12 04/10/23 05:12 Labs: Abnormal Lab Results - Last 24 Hours (Table) 04/09/23 04/09/23 04/10/23 Range/Units 18:56 20:35 05:12 RBC 3.52 L (4.40-5.60) X 10*6/uL Hgb 10.4 L (13.0-17.0) g/dL Hct 33.6 L (39.6-50.0) % MCHC 31.0 L (32.0-37.0) g/dL RDW 14.7 H (11.5-14.5) % Glucose (70-110) mg/dL POC Glucose (mg/dL) 142 H 132 H (70-110) mg/dL 04/10/23 04/10/23 04/10/23 Range/Units 05:12 05:47 11:26 RBC (4.40-5.60) X 10*6/uL Hgb (13.0-17.0) g/dL Hct (39.6-50.0) % MCHC (32.0-37.0) g/dL RDW (11.5-14.5) % Glucose 121 H (70-110) mg/dL POC Glucose (mg/dL) 123 H 225 H (70-110) mg/dL Assessment and Plan Assessment: Fall with trauma, increased back pain ,right hip pain, left ankle pain L1 burst fracture, status postsurgical repair of L1 fracture with T12-L2 STABILIZATION Atelectasis Diabetes mellitus, hemoglobin A1c 6.3 CAD Hypertension Hyperlipidemia Osteoarthritis Sleep apnea, wears CPAP Former nicotine dependence, 2 pack a day x 22 years Suspect COPD Anxiety Depression Plan: Continue on current medication regimen, monitoring and symptomatic treatment.Pain management and DVT prophylaxis as per primary. PT pending. Aggressive pulmonary toileting with incentive spirometer reinforced. Maintain tight blood sugar control, with close monitoring of Accu-Cheks. The impression and plan of care has been dictated as directed. : I performed a history and examination of this patient, discussed the same with the dictator. I agree with the dictator's note ,documented as a scribe. Any additional findings or plans will be noted.
[2023-04-10 16:28] LABS: Glucose,Whole Blood 195 mg/dL (70-110)
[2023-04-10] MEDS: INSULIN DETEMIR (LEVEMIR) 100 UNIT/ML SYR SQ SCH (16:34)
[2023-04-10] MEDS: CYCLOBENZAPRINE 10 MG TAB PO PRN (17:04)
[2023-04-10 20:09] LABS: Glucose,Whole Blood 143 mg/dL (70-110)
[2023-04-11 05:49] LABS: Glucose,Whole Blood 122 mg/dL (70-110)
[2023-04-11 07:22] VITALS: RESP 18
--- NOTE | 2023-04-11 10:33 | P.PN ---
Subjective Progress Note Date: 04/11/23 Evaluated by orthopedic surgery, surgical repair pending. Complains of back and right hip pain denies chest pain, palpitations or shortness of breath. Denies numbness or tingling. Afebrile. Denies chest pain, palpitations or shortness of breath. Maintaining O2 sats in the low 90s on room air. Blood sugars controlled. IV fluids running at 130 an hour, hypertensive-will decrease. 04/09/2023 NPO, maintained on gentle IV fluid hydration, scheduled for surgery today. Denies chest pain, palpitations or shortness of breath. Denies chills cough or congestion. Reports difficulty sleeping in hospital. Pain currently controlled. 04/10/2023 status post surgical repair. Positive pain. Denies numbness or tingling. denies nausea vomiting or diarrhea. Denies abdominal pain. Reports spontaneous voiding. PT pending. Denies chest pain, palpitations or shortness of breath. Afebrile, normal WBC. Blood sugars controlled. 04/11/2023 set up in chair yesterday, stairs with PT pending. Tolerating exertion well. Pain control improving.denies numbness or tingling. Denies pain shooting down legs. denies chest pain, palpitations or shortness of breath. Currently doing passive leg pumps. Afebrile. Denies nausea vomiting or diarrhea. Passing flatus, no bowel movement .blood sugars controlled. Objective - Vital Signs Vital signs: Vital Signs Temp 98.3 F 04/11/23 06:56 Pulse 78 04/11/23 09:07 Resp 18 04/11/23 06:56 BP 134/72 04/11/23 06:56 Pulse Ox 93 L 04/11/23 06:56 FiO2 Intake & Output 04/10/23 04/11/23 04/11/23 18:59 06:59 18:59 Output Total 200 Balance -200 Output: Urine 200 Other: Voiding Method Toilet Urinal # Voids 1 - Exam PHYSICAL EXAM: VITAL SIGNS: [As above] GENERAL: Alert and oriented x 3, sitting up in bed, no acute distress. HEENT: Normocephalic, conjunctivae normal. NECK: Supple, no JVD. CARDIOVASCULAR: S1, S2 regular. No murmur. RESPIRATION: Unlabored, equal air entry, essentially clear to auscultation. ABDOMEN: Soft, nondistended, nontender . No guarding. +BS. LEGS: No edema. no swelling. NERVOUS SYSTEM: Cranial N 2-12 grossly normal. No focal deficits. strength and sensation grossly intact. Skin: Warm and dry, no rash. - Labs CBC & Chem 7: 04/10/23 05:12 04/10/23 05:12 Labs: Abnormal Lab Results - Last 24 Hours (Table) 04/10/23 04/10/23 04/10/23 Range/Units 05:12 05:12 11:26 RBC 3.52 L (4.40-5.60) X 10*6/uL Hgb 10.4 L (13.0-17.0) g/dL Hct 33.6 L (39.6-50.0) % MCHC 31.0 L (32.0-37.0) g/dL RDW 14.7 H (11.5-14.5) % Glucose 121 H (70-110) mg/dL POC Glucose (mg/dL) 225 H (70-110) mg/dL 04/10/23 04/10/23 04/11/23 Range/Units 16:27 20:07 05:46 RBC (4.40-5.60) X 10*6/uL Hgb (13.0-17.0) g/dL Hct (39.6-50.0) % MCHC (32.0-37.0) g/dL RDW (11.5-14.5) % Glucose (70-110) mg/dL POC Glucose (mg/dL) 195 H 143 H 122 H (70-110) mg/dL Assessment and Plan Assessment: Fall with trauma, increased back pain ,right hip pain, left ankle pain L1 burst fracture, status postsurgical repair of L1 fracture with T12-L2 STABILIZATION Atelectasis Diabetes mellitus, hemoglobin A1c 6.3 CAD Hypertension Hyperlipidemia Osteoarthritis Sleep apnea, wears CPAP Former nicotine dependence, 2 pack a day x 22 years Suspect COPD Anxiety Depression Plan: Continue on current medication regimen, monitoring and symptomatic treatment.discharge planning in progress as per orthopedic spine. Medically cleared for discharge. Follow-up with PCP in 1 week. Pain management and DVT prophylaxis as per primary. PT. Maintain aggressive pulmonary toileting with incentive spirometer -reinforced. The impression and plan of care has been dictated as directed. : I performed a history and examination of this patient, discussed the same with the dictator. I agree with the dictator's note ,documented as a scribe. Any additional findings or plans will be noted.
[2023-04-11 11:18] LABS: Glucose,Whole Blood 123 mg/dL (70-110)
[2023-04-11] MEDS: SENNOSIDES-DOCUSATE SODIUM 1 EACH TAB PO PRN (12:28)
[2023-04-11 13:16] VITALS: BP 117/67; TEMP 98.2
--- NOTE | 2023-04-11 14:47 | P.DS ---
Providers Date of admission: 04/08/23 15:07 Expected date of discharge: 04/11/23 Attending physician: Mk Beebe DO Consults: 04/06/23 17:35 Consult Physician Routine Consulting Provider: Germán Nguyen Reason/Comments: medAl Do you want consulting provider notified?: Already Contacted Primary care physician: Kelly Nguyen [facility] Course: Date of admission: Date of discharge: 04/11/2023 Admission diagnosis: 1. AO TYPE A4 BURST FRACTURE L1 WITH POSTERIOR EXTENSION AND DISC COMPROMISE T12-L1 2. LOW BACK PAIN 3. S/P FALL OFF CHAIR AT HOME Discharge diagnosis: Same Attending physician: Dr. Beebe Surgical procedures: 1. OPEN TREATMENT L1 FRACTURE 2. T12-L2 STABILIZATION Brief history: Patient is a 72 old male with a history of type A4 burst fracture L1 with posterior extension and disc compromise T12-L1 low back pain. At this point patient has failed conservative treatment measures and has opted to p roceed with a elective open treatment L1 fracture and T12-L2 stabilization. Hospital course: Details of patient's surgery can be found in operative report. Patient tolerated the procedure well and was subsequently transported to orthopedic floor. Patient's orthopeidc and medical care was provided daily. Patient had daily laboratory tests performed for evaluation of overall blood counts. Patient had daily physical therapy to include strengthening range of motion as well as education with walker ambulation. Patient was noted to have a relatively uneventful postoperative course. Patient reported satisfactory pain control with oral pain medications by postoperative day 2. Patient showed satisfactory progress with physical therapy. Patient moved steadily through the program and had no difficulty meeting the goals by postoperative day 2. Given patient's otherwise satisfactory course and having met physical therapy goals, plan is to discharge patient home on postoperative day 2. Discharge condition/disposition: Patient will be discharged home in stable condition. Discharge medications: Instructions are given on resumption of patient's normal daily medications per primary care recommendation, in addition patient will be prescribed Stem; Flexeril; senna; Duricef. Spine Discharge and Recovery Instructions Date of Surgery: 04/10/2023 Diagnosis: 1. AO TYPE A4 BURST FRACTURE L1 WITH POSTERIOR EXTENSION AND DISC COMPROMISE T12-L1 2. LOW BACK PAIN 3. S/P FALL OFF CHAIR AT HOME Procedure: 1. OPEN TREATMENT L1 FRACTURE 2. T12-L2 STABILIZATION Medications: See medication list All medication refills should be obtained through your primary care doctor or your clinic spine surgeon. Please discuss prescription refills at your follow up appointment. Do not call the hospital for medication refills. Dressing: Leave your dressing in place for a total of 5 days post operatively. Then you may remove your dressing and leave open to air. Keep the area clean and if not able to keep area clean, then cover with sterile gauze and tape. Showering: You may shower 3 days after your procedure allowing soap and water to run over incision. Do not scrub. Do not soak. Blot dry. Follow up: Please confirm a follow up appointment with your surgeon 3 weeks post operatively. Please make an appointment to follow up with your PCP in 1-2 weeks after surgery for evaluation 3 phase, 3-week plan POST OP WEEKS 1-3 1. Lifting/carrying/pushing/pulling limited to less than 5 pounds. 2. Do not sit for longer than 15 minutes at one time. Get up and walk around. Prolonged sitting is NOT advised. If you lay down, see if you can tolerate laying down on you front (belly side) 3. Walk for periods of 15 minutes = 1 mile but no longer; do it multiple times times each day. 4. Ice your low back after activity. POST OP WEEKS 3-6 1. Lifting limited to less than 20 pounds. 2. Do not sit for longer than 30 minutes at a time. Frequently change positions. Use a sit-to stand workstation or take frequent breaks from sitting if you have returned to work. 3. Walk for 30 minutes each day. If possible, do these three or more times a day POST OP WEEKS 6+ At your 6-week appointment we will give you a physical therapy referral to focus on a core stabilization and strengthening program. You should also work on leg & buttock strengthening, hamstring & quadriceps stretching, and continue a low impact aerobic activity program such as swimming, walking, or riding a stationary bicycle. During the initial 6 weeks after your surgery, you are at the highest risk of re-injuring your spine. You should generally avoid BLTs (bending, lifting and twisting combination motions) and follow the above guidelines to reduce the chance of reinjury. You can anticipate post op appointments in our office at approximately 3 weeks and 6 weeks after your surgery. INCISION CARE: If your incision is not draining you do NOT need to cover it with a dressing. Keep your incision clean, dry and intact. In most cases, we apply skin glue, keiry or sutures to the incision at the time of surgery. This will be like a crust or have the appearance of a scab and will fall off in time on its own. The stitches or keiry need to be removed at 3 weeks post op appointment. You may begin to shower 3 days after surgery (this allows the glue to schroeder well). However, please avoid scrubbing the incision site or peeling off any of the skin glue. This will ensure optimal healing of your incision. Also, during this time avoid soaking the incision area in water - this includes swimming pools, hot tubs or baths. No ointments, lotions or oils on the incision until your surgeon allows. Leave keiry, sutures or glue in place. Neurological dysfunction that comes on suddenly can also be a sign of a stroke. Below some common symptoms of a stroke are listed: B - balance difficulty such as sudden onset walking or leaning to one side - NEW E - eye problem such as sudden double vision or trouble seeing on one side - NEW F - Facial weakness or numbness on one side - NEW A - Arm or leg weakness or numbness on one side - NEW S - Slurred speech or difficulty with word finding - NEW T - Time is BRAIN! Call 911 as soon as you recognize these symptoms Diet: Consume a regular diet rich in vegetables and lean protein such as chicken or fish. You should consume in a ratio of approximately 20% fats|40% carbohydrates|40%protein. Vegetables, sweet potatoes, brown rice or quinoa are examples of good carbohydrates. Chips, white bread, cookies and sweets/sugar are examples of bad carbohydrates. Limit your bad carbs, go wild with good carbs. "Life's Simple 7" Guidelines as per [place] [employer] These will help you reclaim your life after surgery and shipping helper in your rec overy, keeping in mind your restrictions. (1) Get Active. Physical activity can help people lose weight, control high blood pressure and cholesterol, feel emotionally better, and sleep better. (2) Control Cholesterol. Avoid a diet high in saturated fat, trans fat, & cholesterol. Limit whole milk & cream, ice cream, butter, egg yolks, processed meats (like sausage and hot dogs), and fatty meats. Choose healthy foods that are low in saturated fat, trans fat and cholesterol which include: Fruits and vegetables, fiber rich grain products (like whole grain pasta and brown rice), lean meat such as chicken, fish, nuts, seeds, and legumes. (3) Eat Better. Eat small portions. Shop at the grocery with a list and do not stray from it. Tips for a healthy diet include: Limit sodium intake to less than 1500mg daily, avoid prepackaged, processed, and fast foods, choose a diet rich in fruits, vegetables, and whole grain, high fiber foods, and limit saturated & cholesterol in your diet. (4) Manage Blood Pressure. If you have high blood pressure, you should have a cuff at home so that you can check your blood pressure regularly. Be sure you have a good cuff. An arm one is generally better than a wrist one. Bring the cuff to a doctor's appointment to validate that the measurements that your cuff are taking are accurate. Take your blood pressure twice daily when you are sitting down and relaxing. Record the numbers in a log and bring this log with you to your doctors' appointments. (5) Lose Weight if your BMI is above 25. A healthy BMI is between 19-25. To calculate Your BMI, you may use a Standard BMI Calculator on the NIH BMI website: <www.nhlbi.nih.gov/guidelines/obesity/BMI/bmicalc.htm>. Weigh oneself daily. If you are overweight, set a goal to lose weight. A pound a week loss if needed is a good target. (6) Reduce Blood Sugar. Limit foods and liquids with "added sugars." (Added sugars include sucrose, fructose, glucose, maltose, dextrose, high fructose corn syrup, corn syrup, concentrated fruit juice and honey). (7) Stop Smoking. If you smoke, quitting smoking is one of the best things that you can do for your health. Smoking increases your risk of heart attack, stroke, and peripheral vascular disease, which is a build-up of plaque in your arteries. Please discard all the cigarettes and lighters in your house. Have a plan for what you will do when you have the urge to smoke. Direct and second- hand smoke shortens your life as well as the lives of your family, friends and others around you. For your health and the health of those around you, please consider quitting! Proper Bending Body Mechanics: Maintain a wide stance with one foot slightly in front of the other. Keep your back straight. Bend utilizing the strength in your hips and knees. Do not bend at the waist. Maintain the lifted object at your waist-level close to your body. Avoid lifting weight that causes immediately pain or pain anywhere in the body afterwards. Smoking/Nicotine If there was ever one thing that you could do to increase your overall health, decrease your risk of cardiovascular problems by about 39% the second you make the choice, it is to STOP SMOKING. Your body's most instant gratification is the second you stop smoking. We have all heard the studies, read the articles but it is true, smoking is extremely bad for your overall health, and moreover it is detrimental to your bone health. Nicotine, IN ANY FORM, kills bone cells, prevents your body from healing fractures, and significantly prolongs healing after surgery. In spine surgery specifically, it increases your risk of not healing your bones to create a fusion and increases your risk of having a revision surgery due to this up to 60%. I know it is hard. I know it feels impossible. But there are ways. Take control of your life. We are here to help you through it. And when you are ready, ask us and we can direct you to help if you desire. Use the START Plan to Quit Smoking (please visit the Helpguide.org website listed below for more information): S = Set a quit date. Choose a date within the next 2 weeks, so you have enough time to prepare without losing your motivation to quit. If you mainly smoke at work, quit on the weekend, so you have a few days to adjust to the change. T = Tell family, friends, and co-workers that you plan to quit. Let your friends and family in on your plan to quit smoking and tell them you need their support and encouragement to stop. Look for a quit lisa who wants to stop smoking as well. You can help each other get through the rough times. A = Anticipate and plan for the challenges you'll face while quitting. Most people who begin smoking again do so within the first 3 months. You can help yourself make it through by preparing ahead for common challenges, such as nicotine withdrawal and cigarette cravings. R = Remove cigarettes and other tobacco products from your home, car, and work. Throw away all your cigarettes (no emergency pack!), lighters, ashtrays, and matches. Wash your clothes and freshen up anything that smells like smoke. Shampoo your car, clean your drapes and carpet, and steam your furniture. T = Talk to your doctor about getting help to quit. Your doctor can prescribe medication to help with withdrawal and suggest other alternatives. If you can't see a doctor, you can get many products over the counter at your local pharmacy or grocery store, including the nicotine patch, nicotine lozenges, and nicotine gum. Resources for Quitting Smoking: <https://www.[place].gov/documents/[facility]/Quit_Tobacco_Resources_for_patients_313 480_7.pdf> Supplementation: Take recommended dosages of Vitamin D and Calcium to help fortify your bones and help them to heal. See your health maintenance packet for dosages and recommended levels. DVT/VTE prophylaxis: You will be given compression stockings from the hospital. Wear these daily for the first two weeks after surgery. You may take them off at night. You may be prescribed a medication to help thin your blood. Take this as directed. If you are not prescribed this medication, early and frequent ambulation has been shown to be the best prophylaxis to deep vein thrombosis and sequelae related to this event. Assessment: 1. AO TYPE A4 BURST FRACTURE L1 WITH POSTERIOR EXTENSION AND DISC COMPROMISE T12-L1 2. LOW BACK PAIN 3. S/P FALL OFF CHAIR AT HOME Procedures: 1. OPEN TREATMENT L1 FRACTURE 2. T12-L2 STABILIZATION Patient Condition at Discharge: Good Plan - Discharge Summary Discharge Rx Participant: No New Discharge Prescriptions: New Cyclobenzaprine [Flexeril] 5 mg PO TID #21 tablet HYDROcodone/APAP 7.5-325MG [Stem 7.5-325] 1 tab PO Q6HR PRN #28 tab PRN Reason: Pain cefaDROXiL [Duricef] 500 mg PO Q12HR 5 Days #10 cap Sennosides/Docusate Sodium [Senna Plus 8.6-50 mg Softgel] 1 each PO DAILY #20 capsule No Action Levothyroxine Sodium [Synthroid] 50 mcg PO DAILY Aspirin EC [Ecotrin Low Dose] 81 mg PO DAILY fluvoxaMINE MALEATE [Fluvoxamine Maleate] 100 mg PO DAILY Terazosin HCl [Hytrin] 10 mg PO HS buPROPion HCL [Wellbutrin XL] 150 mg PO DAILY metFORMIN HCL [Glucophage] 1,000 mg PO DAILY Finasteride [Proscar] 5 mg PO DAILY Atorvastatin [Lipitor] 20 mg PO HS Pioglitazone [Actos] 30 mg PO DAILY Discharge Medication List Aspirin EC [Ecotrin Low Dose] 81 mg PO DAILY 10/11/16 [History] Atorvastatin [Lipitor] 20 mg PO HS 10/11/16 [History] Finasteride [Proscar] 5 mg PO DAILY 10/11/16 [History] Levothyroxine Sodium [Synthroid] 50 mcg PO DAILY 10/11/16 [History] Terazosin HCl [Hytrin] 10 mg PO HS 10/11/16 [History] buPROPion HCL [Wellbutrin XL] 150 mg PO DAILY 10/11/16 [History] fluvoxaMINE MALEATE [Fluvoxamine Maleate] 100 mg PO DAILY 10/11/16 [History] metFORMIN HCL [Glucophage] 1,000 mg PO DAILY 10/11/16 [History] Pioglitazone [Actos] 30 mg PO DAILY 04/06/23 [History] Cyclobenzaprine [Flexeril] 5 mg PO TID #21 tablet 04/11/23 [Rx] HYDROcodone/APAP 7.5-325MG [Stem 7.5-325] 1 tab PO Q6HR PRN #28 tab 04/11/23 [Rx] Sennosides/Docusate Sodium [Senna Plus 8.6-50 mg Softgel] 1 each PO DAILY #20 capsule 04/11/23 [Rx] cefaDROXiL [Duricef] 500 mg PO Q12HR 5 Days #10 cap 04/11/23 [Rx] Follow up Appointment(s)/Referral(s): None,Stated [REFERRING] - 1-2 days Mk Beebe DO [Doctor of Osteopathic Medicine] - 2 Weeks Activity/Diet/Wound Care/Special Instructions: Spine Discharge and Recovery Instructions Date of Surgery: 04/10/2023 Diagnosis: 1. AO TYPE A4 BURST FRACTURE L1 WITH POSTERIOR EXTENSION AND DISC COMPROMISE T12-L1 2. LOW BACK PAIN 3. S/P FALL OFF CHAIR AT HOME Procedure: 1. OPEN TREATMENT L1 FRACTURE 2. T12-L2 STABILIZATION Medications: See medication list All medication refills should be obtained through your primary care doctor or your clinic spine surgeon. Please discuss prescription refills at your follow up appointment. Do not call the hospital for medication refills. Dressing: Leave your dressing in place for a total of 5 days post operatively. Then you may remove your dressing and leave open to air. Keep the area clean and if not able to keep area clean, then cover with sterile gauze and tape. Showering: You may shower 3 days after your procedure allowing soap and water to run over incision. Do not scrub. Do not soak. Blot dry. Follow up: Please confirm a follow up appointment with your surgeon 3 weeks post operatively. Please make an appointment to follow up with your PCP in 1-2 weeks after surgery for evaluation 3 phase, 3-week plan POST OP WEEKS 1-3 1. Lifting/carrying/pushing/pulling limited to less than 5 pounds. 2. Do not sit for longer than 15 minutes at one time. Get up and walk around. Prolonged sitting is NOT advised. If you lay down, see if you can tolerate laying down on you front (belly side) 3. Walk for periods of 15 minutes = 1 mile but no longer; do it multiple times times each day. 4. Ice your low back after activity. POST OP WEEKS 3-6 1. Lifting limited to less than 20 pounds. 2. Do not sit for longer than 30 minutes at a time. Frequently change positions. Use a sit-to stand workstation or take frequent breaks from sitting if you have returned to work. 3. Walk for 30 minutes each day. If possible, do these three or more times a day POST OP WEEKS 6+ At your 6-week appointment we will give you a physical therapy referral to focus on a core stabilization and strengthening program. You should also work on leg & buttock strengthening, hamstring & quadriceps stretching, and continue a low impact aerobic activity program such as swimming, walking, or riding a stationary bicycle. During the initial 6 weeks after your surgery, you are at the highest risk of re-injuring your spine. You should generally avoid BLTs (bending, lifting and twisting combination motions) and follow the above guidelines to reduce the chance of reinjury. You can anticipate post op appointments in our office at approximately 3 weeks and 6 weeks after your surgery. INCISION CARE: If your incision is not draining you do NOT need to cover it with a dressing. Keep your incision clean, dry and intact. In most cases, we apply skin glue, keiry or sutures to the incision at the time of surgery. This will be like a crust or have the appearance of a scab and will fall off in time on its own. The stitches or keiry need to be removed at 3 weeks post op appointment. You may begin to shower 3 days after surgery (this allows the glue to schroeder well). However, please avoid scrubbing the incision site or peeling off any of the skin glue. This will ensure optimal healing of your incision. Also, during this time avoid soaking the incision area in water - this includes swimming pools, hot tubs or baths. No ointments, lotions or oils on the incision until your surgeon allows. Leave keiry, sutures or glue in place. Neurological dysfunction that comes on suddenly can also be a sign of a stroke. Below some common symptoms of a stroke are listed: B - balance difficulty such as sudden onset walking or leaning to one side - NEW E - eye problem such as sudden double vision or trouble seeing on one side - NEW F - Facial weakness or numbness on one side - NEW A - Arm or leg weakness or numbness on one side - NEW S - Slurred speech or difficulty with word finding - NEW T - Time is BRAIN! Call 911 as soon as you recognize these symptoms Diet: Consume a regular diet rich in vegetables and lean protein such as chicken or fish. You should consume in a ratio of approximately 20% fats|40% carbohydrates|40%protein. Vegetables, sweet potatoes, brown rice or quinoa are examples of good carbohydrates. Chips, white bread, cookies and sweets/sugar are examples of bad carbohydrates. Limit your bad carbs, go wild with good carbs. "Life's Simple 7" Guidelines as per [place] [employer] These will help you reclaim your life after surgery and shipping helper in your recovery, keeping in mind your restrictions. (1) Get Active. Physical activity can help people lose weight, control high blood pressure and cholesterol, feel emotionally better, and sleep better. (2) Control Cholesterol. Avoid a diet high in saturated fat, trans fat, & cholesterol. Limit whole milk & cream, ice cream, butter, egg yolks, processed meats (like sausage and hot dogs), and fatty meats. Choose healthy foods that are low in saturated fat, trans fat and cholesterol which include: Fruits and vegetables, fiber rich grain products (like whole grain pasta and brown rice), lean meat such as chicken, fish, nuts, seeds, and legumes. (3) Eat Better. Eat small portions. Shop at the grocery with a list and do not stray from it. Tips for a healthy diet include: Limit sodium intake to less than 1500mg daily, avoid prepackaged, processed, and fast foods, choose a diet rich in fruits, vegetables, and whole grain, high fiber foods, and limit saturated & cholesterol in your diet. (4) Manage Blood Pressure. If you have high blood pressure, you should have a cuff at home so that you can check your blood pressure regularly. Be sure you have a good cuff. An arm one is generally better than a wrist one. Bring the cuff to a doctor's appointment to validate that the measurements that your cuff are taking are accurate. Take your blood pressure twice daily when you are sitting down and relaxing. Record the numbers in a log and bring this log with you to your doctors' appointments. (5) Lose Weight if your BMI is above 25. A healthy BMI is between 19-25. To calculate Your BMI, you may use a Standard BMI Calculator on the NIH BMI website: <www.nhlbi.nih.gov/guidelines/obesity/BMI/bmicalc.htm>. Weigh oneself daily. If you are overweight, set a goal to lose weight. A pound a week loss if needed is a good target. (6) Reduce Blood Sugar. Limit foods and liquids with "added sugars." (Added sugars include sucrose, fructose, glucose, maltose, dextrose, high fructose corn syrup, corn syrup, concentrated fruit juice and honey). (7) Stop Smoking. If you smoke, quitting smoking is one of the best things that you can do for your health. Smoking increases your risk of heart attack, stroke, and peripheral vascular disease, which is a build-up of plaque in your arteries. Please discard all the cigarettes and lighters in your house. Have a plan for what you will do when you have the urge to smoke. Direct and second- hand smoke shortens your life as well as the lives of your family, friends and others around you. For your health and the health of those around you, please consider quitting! Proper Bending Body Mechanics: Maintain a wide stance with one foot slightly in front of the other. Keep your back straight. Bend utilizing the strength in your hips and knees. Do not bend at the waist. Maintain the lifted object at your waist-level close to your body. Avoid lifting weight that causes immediately pain or pain anywhere in the body afterwards. Smoking/Nicotine If there was ever one thing that you could do to increase your overall health, decrease your risk of cardiovascular problems by about 39% the second you make the choice, it is to STOP SMOKING. Your body's most instant gratification is the second you stop smoking. We have all heard the studies, read the articles but it is true, smoking is extremely bad for your overall health, and moreover it is detrimental to your bone health. Nicotine, IN ANY FORM, kills bone cells, prevents your body from healing fractures, and significantly prolongs healing after surgery. In spine surgery specifically, it increases your risk of not healing your bones to create a fusion and increases your risk of having a revision surgery due to this up to 60%. I know it is hard. I know it feels impossible. But there are ways. Take control of your life. We are here to help you through it. And when you are ready, ask us and we can direct you to help if you desire. Use the START Plan to Quit Smoking (please visit the Helpguide.org website listed below for more information): S = Set a quit date. Choose a date within the next 2 weeks, so you have enough time to prepare without losing your motivation to quit. If you mainly smoke at work, quit on the weekend, so you have a few days to adjust to the change. T = Tell family, friends, and co-workers that you plan to quit. Let your friends and family in on your plan to quit smoking and tell them you need their support and encouragement to stop. Look for a quit lisa who wants to stop smoking as well. You can help each other get through the rough times. A = Anticipate and plan for the challenges you'll face while quitting. Most people who begin smoking again do so within the first 3 months. You can help yourself make it through by preparing ahead for common challenges, such as nicotine withdrawal and cigarette cravings. R = Remove cigarettes and other tobacco products from your home, car, and work. Throw away all your cigarettes (no emergency pack!), lighters, ashtrays, and matches. Wash your clothes and freshen up anything that smells like smoke. Shampoo your car, clean your drapes and carpet, and steam your furniture. T = Talk to your doctor about getting help to quit. Your doctor can prescribe medication to help with withdrawal and suggest other alternatives. If you can't see a doctor, you can get many products over the counter at your local pharmacy or grocery store, including the nicotine patch, nicotine lozenges, and nicotine gum. Resources for Quitting Smoking: <https ://www.[place].gov/documents/[facility]/Quit_Tobacco_Resources_for_patients_313480_7. pdf> Supplementation: Take recommended dosages of Vitamin D and Calcium to help fortify your bones and help them to heal. See your health maintenance packet for dosages and recommended levels. DVT/VTE prophylaxis: You will be given compression stockings from the hospital. Wear these daily for the first two weeks after surgery. You may take them off at night. You may be prescribed a medication to help thin your blood. Take this as directed. If you are not prescribed this medication, early and frequent ambulation has been shown to be the best prophylaxis to deep vein thrombosis and sequelae related to this event. Discharge Disposition: HOME SELF-CARE
--- NOTE | 2023-04-11 14:48 | P.PN ---
Subjective Progress Note Date: 04/11/23 Principal diagnosis: 1. AO TYPE A4 BURST FRACTURE L1 WITH POSTERIOR EXTENSION AND DISC COMPROMISE T12-L1 2. LOW BACK PAIN 3. S/P FALL OFF CHAIR AT HOME Patient seen at bedside this afternoon with family members/friend present during counter. Patient was sitting up in chair and had finished working with therapy. Patient says he is excited home today. Patient says he has been walking around the room and out of the hallway and up and down steps. Patient says he has urinated daily since surgery without issue. Patient denies chest pain, fever, shortness breath, nausea, vomiting, change in vision, loss of bowel/bladder control. Objective - Vital Signs Vital signs: Vital Signs Temp 98.2 F 04/11/23 12:59 Pulse 109 H 04/11/23 12:59 Resp 18 04/11/23 12:59 BP 117/67 04/11/23 12:59 Pulse Ox 96 04/11/23 12:59 FiO2 Intake & Output 04/10/23 04/11/23 04/11/23 18:59 06:59 18:59 Output Total 200 Balance -200 Output: Urine 200 Other: Voiding Method Toilet Urinal # Voids 1 - Exam Palpation: There is moderate to severe tenderness to palpation in the midline lumbar region. There is no obvious deformity. Inspection: Silver foam dressing present over the lumbar spine. Dressings appear to be present with some spotting. New dressing placed over incisions. Serenity are well aligned and intact. Musculoskeletal: ROM limited secondary to pain and stiffness. Shoulder abduction 5/5, elbow flexors 5/5, wrist dorsiflexors 5/5. finger abductor 5/5, runstitching machine operator 5/5, hip flexor 4/5, knee flexor 5/5, ankle dorsiflexor 5/5, ankle plantarflexion 5/5 and extensor hallucis 5/5. Neurological: CN 2-12 intact. There are no obvious motor or sensory deficits. Movement and coordination equal and intact. Sensory exam to light touch intact C5-T1 and intact from L2-S1. Reflexes 2/4 in bilateral upper and lower extremities. Negative Hoffmans, babinski, and clonus signs. - Labs CBC & Chem 7: 04/10/23 05:12 04/10/23 05:12 Labs: Abnormal Lab Results - Last 24 Hours (Table) 04/10/23 04/10/23 04/11/23 Range/Units 16:27 20:07 05:46 POC Glucose (mg/dL) 195 H 143 H 122 H (70-110) mg/dL 04/11/23 Range/Units 11:17 POC Glucose (mg/dL) 123 H (70-110) mg/dL Assessment and Plan Assessment: 1. AO TYPE A4 BURST FRACTURE L1 WITH POSTERIOR EXTENSION AND DISC COMPROMISE T12-L1 2. LOW BACK PAIN 3. S/P FALL OFF CHAIR AT HOME postoperative day 2 status post 1. OPEN TREATMENT L1 FRACTURE 2. T12-L2 STABILIZATION Plan: 1. AO TYPE A4 BURST FRACTURE L1 WITH POSTERIOR EXTENSION AND DISC COMPROMISE T12-L1; LOW BACK PAIN; S/P FALL OFF CHAIR AT HOME - surgery performed 04/09/2023 - OPEN TREATMENT L1 FRACTURE; T12-L2 STABILIZATION. patient stable at bedside this afternoon. Patient did do well with therapy and walk on the garay and up-and-down steps with brace on. Discharge home today 2. Appreciate medical management 3. Pain management - [place]; Flexeril; Tylenol 4. DVT prophylaxis - mechanical 5. GI prophylaxis - senna; Protonix; milk of magnesia 6. PT/OT - weightbearing as tolerated with walker and brace on while up and about 7. Encourage incentive spirometer use 8. Discharge planning - discharge home today Time with Patient: Less than 30
[2023-04-11 15:25] VITALS: PULSE 84
== END 2023-04-11 16:29 | disposition home or self-care (01) | DRG 479 ==
LOC: EC 17:07 → 4SSUR 17:35 → OBSVTOIN 04-08 15:07
PROVIDERS: ADMIT Orthopaedic Surgery; ATTEND Orthopaedic Surgery
PROC: 0QS004Z Reposition Lumbar Vertebra with Internal Fixation Device, Open Approach (ICD-10-PCS; 2023-04-09)
PROC: XNU0356 Supplement Lumbar Vertebra with Mechanically Expandable (Paired) Synthetic Substitute, Percutaneous Approach, New Technology Group 6 (ICD-10-PCS; 2023-04-09)
PROC: 8E0YXBZ Computer Assisted Procedure of Lower Extremity (ICD-10-PCS; 2023-04-09)
PROC: 0QB00ZX Excision of Lumbar Vertebra, Open Approach, Diagnostic (ICD-10-PCS; principal; 2023-04-09 08:45)
DX: S32.011A Stable burst fracture of first lumbar vertebra, initial encounter for closed fracture (principal); E11.9 Type 2 diabetes mellitus without complications; J44.9 Chronic obstructive pulmonary disease, unspecified; E03.9 Hypothyroidism, unspecified; I10 Essential (primary) hypertension; F32.A Depression, unspecified; E78.5 Hyperlipidemia, unspecified; G47.30 Sleep apnea, unspecified; I25.10 Atherosclerotic heart disease of native coronary artery without angina pectoris; F41.9 Anxiety disorder, unspecified; M19.90 Unspecified osteoarthritis, unspecified site; R33.9 Retention of urine, unspecified; R60.0 Localized edema; W07.XXXA Fall from chair, initial encounter; Y92.009 Unspecified place in unspecified non-institutional (private) residence as the place of occurrence of the external cause; Z79.82 Long term (current) use of aspirin; Z79.84 Long term (current) use of oral hypoglycemic drugs; Z79.890 Hormone replacement therapy; Z79.899 Other long term (current) drug therapy; Z87.891 Personal history of nicotine dependence; Z85.828 Personal history of other malignant neoplasm of skin
CPT/HCPCS: 72100; 72128; 72131; 80048; 80053; 83036; 83735; 84100; 85025; 86850; 86900; 86901; 88307; 88311; 94640; 96361; 96374; 99285

== ENCOUNTER → 2023-10-28 | Outpatient (CLI) | payer MEDICARE, OTHER ==
[2023-10-28 09:52] VITALS: BP 175/76; PULSE 72; RESP 16; TEMP 97.4
--- NOTE | 2023-10-28 13:33 | P.PAINPG ---
Objective - Vital Signs Vital signs: Vital Signs Temp 97.4 F L 10/28/23 09:48 Pulse 72 10/28/23 09:48 Resp 16 10/28/23 09:48 BP 175/76 10/28/23 09:48 Pulse Ox 98 10/28/23 09:48 FiO2 Intake & Output 10/27/23 10/28/23 10/28/23 18:59 06:59 18:59 Weight 88.451 kg PQRS Measure Charge Sheet Mode of Arrival: Ambulatory Comment: HISTORY OF PRESENT ILLNESS: A 73 yr old male as a referral from Dr Beebe presents today w severe and chronic secondary to radiculopathy, spondylosis and facet arthropathy without myelopathy for evaluation. Pt states pain level is provoked at 9 /10 in intensity, constant, localized in the lower lumbar spine, predominantly axial, sharp in character without shooting pain . Pain is provoked by walking for periods > 20 min. Pain is alleviated by injections from Dr Beebe, physician guided home stretches daily since Aug 2023, manual massage, medications (Ibu), repositioning and rest . PMH: OA, CAD, Skin CA, NIDDM II, Hyperlipidemia, HTN, SOPHIE, MDD/ Anxiety PSH: T12-L1 ORIF (Aug 2023), HH Repair, Tonsillectomy, BL CTR, R Shoulder Arthroscopy, Colonoscopy SH: Negative x3 FH: Bro- CA All: See list Meds: See list REVIEW OF ORGAN SYSTEMS: CONSTITUTIONAL: No fevers or chills. No recent weight loss. NEUROLOGICAL: + numbness and tingling along the distal extremities. No seizure disorders or headaches. MUSCULOSKELETAL: + pain PSYCHIATRIC: Denies current depression or suicidal thoughts. Physical Examinations : Constitutional : Cooperative , not in acute distress . Neurologic : Cranial nerve II to XII intact. No focal neurological deficits. Psychiatric : alert & oriented x 3. Matching mood & appropriate affect. Judgment & insight intact. Musculoskeletal : Cervical Spine Motor strength in the deltoid and biceps: Normal right side. Normal Left side Motor strength biceps and the wrist extensors: Normal right side . Normal left side Motor strength in the triceps muscle: Normal right side. Normal left side Deep tendon reflexes: Normal at the biceps. Normal at Brachioradialis. Normal at triceps Vertebral body tenderness to deep palpation over Cervical facet loading test: positive bilaterally Spurling test: positive bilaterally Neck distraction test: positive bilaterally Haley sign: positive bilaterally Lumbar spine Motor strength lower extremities ,thigh and legs 5/5 Right side , 5/5 Left side Deep tendon reflexes : Normal Knee Jerk. Normal Ankle Jerk Vertebral body tenderness over Encarnacion Test positive Lumbar facet Loading Test: positive Right / positive Left L5-S1 Range of motion of the lumbar spine Flexion 30 degrees, extension 10 degrees Straight Leg Raise test: Left/ Right positive at degrees Makenna test: positive right / positive left. Severe tenderness over the Sacroiliac joint on the Right / Left sides Gaenslen test: positive bilaterally Seated flexion test: positive bilaterally. Sacral spine : Severe tenderness over the Sacroiliac joint: right side / left side Range of motion: Flexion of the lumbar spine <60 degrees Range of motion: Extension of the lumbar spine <20 degrees Gaenslen's Test positive Makenna test: positive right side / left side Thigh Thrust Test Sacral Thrust Test Imaging: CT non contrast lumbar spine from 04/07/23 reviewed Assessment/ Plan : T12-L2 ORIF post laminectomy syndrome Recommendation of BL MBB L5-S1 #1. Risks, benefits of procedure discussed and patient verbalized understanding. Admits to anti- coagulant use or medical history of diabetes. Protocol for discontinuation/ continuation of medications margarita procedure discussed. Minimal anesthesia provided, if clinically indicated, consisting of Versed and Fentanyl. All questions answered. I have spent greater than 30 minutes on patient care today. Dr Romo was available by phone for the evaluation of this patient. The time was used to review the medical records including relevant urine studies and Prescription history (MAPs), review of the available imaging, evaluation and examination of the patient, coordination of care with the medical staff and if applicable referring physicians, as well as creation of the medical record - Pain Location Lower Back Pharmacological Interventions: Block, Epidural, Pain Pump, PRN Medication PQRS Narrative: Smoking Status Former smoker Blood Pressure 175/76 Pain Intensity [Lower Back] 5 Scale Used Numeric (1 - 10) Hx Alcohol Use (MH) No Home Medications: Ambulatory Orders Aspirin EC [Ecotrin Low Dose] 81 mg PO DAILY 10/11/16 Atorvastatin [Lipitor] 20 mg PO HS 10/11/16 Finasteride [Proscar] 5 mg PO DAILY 10/11/16 Levothyroxine Sodium [Synthroid] 50 mcg PO DAILY 10/11/16 Terazosin HCl [Hytrin] 10 mg PO HS 10/11/16 buPROPion HCL [Wellbutrin XL] 150 mg PO DAILY 10/11/16 fluvoxaMINE MALEATE [Fluvoxamine Maleate] 100 mg PO DAILY 10/11/16 metFORMIN HCL [Glucophage] 1,000 mg PO DAILY 10/11/16 Pioglitazone [Actos] 30 mg PO DAILY 04/06/23 Cyclobenzaprine [Flexeril] 5 mg PO TID #21 tablet 04/11/23 HYDROcodone/APAP 7.5-325MG [Warren 7.5-325] 1 tab PO Q6HR PRN #28 tab 04/11/23 Sennosides/Docusate Sodium [Senna Plus 8.6-50 mg Softgel] 1 each PO DAILY #20 capsule 04/11/23 cefaDROXiL [Duricef] 500 mg PO Q12HR 5 Days #10 cap 04/11/23 Acetaminophen-Codeine 300-30mg [Tylenol w/codeine #3] 1 tab PO Q4H PRN 3 Days #18 tablet 10/28/23 Controlled Substance Measures - Controlled Substance Measures Is patient prescribed a controlled substance at discharge?: Yes When asked, does pt state using other controlled substances?: No If prescribed controlled substance>3 days was MAPS reviewed?: Prescribed <3 Days
== END ==
LOC: PNWHC3 09:19
PROVIDERS: ATTEND Specialist
DX: M46.96 Unspecified inflammatory spondylopathy, lumbar region
CPT/HCPCS: 99211

== ENCOUNTER 2023-12-05 11:25 | Day surgery (SDC) | payer MEDICARE, OTHER ==
[2023-12-02 14:55] VITALS: BMI 25.7
[2023-12-05 11:59] VITALS: TEMP 97
[2023-12-05] MEDS: IV FLUID CONTINUATION 1,000 ML IV ONE ×3 (12:00→13:06)
[2023-12-05] MEDS: LACTATED RINGERS 1,000 ML IV SCH (12:01)
[2023-12-05 12:10] LABS: Glucose,Whole Blood 126 mg/dL (70-110)
[2023-12-05] MEDS ORDERED: ROPIVACAINE 5MG/ML 20ML VIAL ONE (12:16)
[2023-12-05] MEDS ORDERED: fentaNYL (PF) 50 MCG/ML 2 ML AMP ONE (12:16)
[2023-12-05] MEDS ORDERED: MIDAZOLAM 2 MG/2 ML VIAL ONE (12:16)
--- NOTE | 2023-12-05 12:26 | P.PCN ---
Date of Procedure: 12/05/23 Procedure(s) Performed: PREOPERATIVE DIAGNOSIS : 1- Lumbar spondylosis with Facet Arthropathy with out myelopathy . 2- Lumber degenerative disc disease POSTOPERATIVE DIAGNOSIS: 1- Lumbar spondylosis with Facet Arthropathy without myelopathy . 2- Lumber degenerative disc disease PROCEDURE: Diagnostic bilateral L4 , and L5 medial branch block under fluoroscopy guidance(fluoroscopy images available in the radiology Department ) ( To target the facet joint between Bilateral L5-S1 )# 1st ANESTHESIA:moderate sedation with intravenous Versed 1 mg and Fentanyl 50 mcg. (Sedation start time 12:16, end at 12:23 ) EBL: Minimal COMPLICATION: None PROCEDURE INDICATION: Chronic low back pain secondary to Facet arthropathy unresponsive to conservative treatment. PROCEDURE DESCRIPTION: the patient was seen and identified in the preop holding area , risks and benefits and possible complications of the procedure and alternative were discussed with the patient, and the patient agreed to proceed with the procedure and signed the consent and vital signs monitored during the procedure and fluoroscopy was used to maximize the benefit and accuracy of the needle placement, and sedation was given to decrease patient anxiety, patient was taken to the procedure room and placed in prone position vital signs monitored in the back prepped with chlorhexidine X3 then under strict sterile technique using a right oblique fluoroscopy ,the junction of the transverse process and the superior articulating process of the right L4 , and L5 vertebra which corresponding to the fluoroscopy image of the eye of the Mike dog on the block side for the medial branches and subsequently , after local infiltration of skin and subcu tissuies with Ropivacaine 0.5 % , one mL at each level ,then 22-gauge Quincke-type needles ,2 needle was used , each one of them placed at the junction of the base of the transverse process and the superior articular process at the appropriate level, and the needle was advanced until the periosteum contacted, needle placement confirmed with AP oblique and lateral view and after appropriate needle placement confirmed, and after negative aspiration for heme and CSF and there was no paresthesia 1 mL of Ropivacaine 0.5% , then half mL injected at each level after negative aspiration the needle subsequently removed and the same procedure repeated for the left side at left side at L4 and L5 levels. At the end of the procedure and the needles removed and a bandage applied after the skin was cleaned the cleaning solution patient taken to recovery room in stable condition and monitors in the recovery room for 20-30 minutes and discharged home in stable condition after discharge criteria met and patient will follow up with the pain clinic in 2-4 weeks
[2023-12-05 12:45] VITALS: RESP 18
[2023-12-05 13:04] VITALS: BP 153/77; PULSE 73
--- NOTE | 2023-12-05 14:56 | FL ---
EXAMINATION TYPE: FL guided pain mgmt statistic DATE OF EXAM: 12/05/2023 12:33 PM COMPARISON: Pre Operative Images if available both CT/MRI or plain film CLINICAL INDICATION: Male, 73 years old with history of New Lumbar Facet; TECHNIQUE: FL guided pain mgmt statistic, multiple fluoroscopic images provided for procedure. Total fluoroscopy time: 6 seconds Total submitted images to PACS: 4 DAP: [id number] mGym2 Gycm2 uGym2 cGycm2 or equivalent. FINDINGS: Fluoroscopic images during injection for pain management demonstrate multilevel degeneration changes throughout the spine. No evidence for fracture. No acute process identified. IMPRESSION: 1. No evidence for intraoperative complication. 2. Please see the operative/procedural note for further details. [facility], , 12/05/2023 12:58 PM
== END 2023-12-05 13:12 | disposition home or self-care (01) ==
LOC: ORPAIN 11:25
PROVIDERS: ATTEND Specialist
DX: M46.96 Unspecified inflammatory spondylopathy, lumbar region

== ENCOUNTER → 2023-12-19 | Outpatient (CLI) | payer MEDICARE, OTHER ==
[2023-12-19 10:07] VITALS: BP 156/82; PULSE 71; RESP 16
--- NOTE | 2023-12-23 07:39 | P.PAINPG ---
Objective - Vital Signs Vital signs: Vital Signs Temp Pulse 71 12/19/23 10:04 Resp 16 12/19/23 10:04 BP 156/82 12/19/23 10:04 Pulse Ox 96 12/19/23 10:04 FiO2 Intake & Output 12/18/23 12/19/23 12/19/23 18:59 06:59 18:59 Weight 88.451 kg PQRS Measure Charge Sheet Mode of Arrival: Ambulatory Comment: HISTORY OF PRESENT ILLNESS: A 73 yr old male presents today w severe and chronic secondary to radic ulopathy, spondylosis and facet arthropathy without myelopathy for evaluation s/p BL MBB L5-S1 #1. Pt states he experienced 100% pain relief x 4 days s/p procedure. Pt states pain level is provoked at 8 /10 in intensity, constant, localized in the lower lumbar spine, predominantly axial, sharp in character without shooting pain . Pain is provoked by walking for periods > 20 min. Pain is alleviated by injections from Dr Beebe, physician guided home stretches daily since Aug 2023, manual massage, medications, repositioning and rest . Interventional procedures include BL MBB L4-L5/ L5-S1 x1 Medications include Ibu REVIEW OF ORGAN SYSTEMS: CONSTITUTIONAL: No fevers or chills. No recent weight loss. NEUROLOGICAL: + numbness and tingling along the distal extremities. No seizure disorders or headaches. MUSCULOSKELETAL: + pain PSYCHIATRIC: Denies current depression or suicidal thoughts. Physical Examinations : Constitutional : Cooperative , not in acute distress . Neurologic : Cranial nerve II to XII intact. No focal neurological deficits. Psychiatric : alert & oriented x 3. Matching mood & appropriate affect. Judgment & insight intact. Musculoskeletal : Cervical Spine Motor strength in the deltoid and biceps: Normal right side. Normal Left side Motor strength biceps and the wrist extensors: Normal right side . Normal left side Motor strength in the triceps muscle: Normal right side. Normal left side Deep tendon reflexes: Normal at the biceps. Normal at Brachioradialis. Normal at triceps Vertebral body tenderness to deep palpation over Cervical facet loading test: positive bilaterally Spurling test: positive bilaterally Neck distraction test: positive bilaterally Haley sign: positive bilaterally Lumbar spine Motor strength lower extremities ,thigh and legs 5/5 Right side , 5/5 Left side Deep tendon reflexes : Normal Knee Jerk. Normal Ankle Jerk Vertebral body tenderness over Encarnacion Test positive Lumbar facet Loading Test: positive Right / positive Left L5-S1 Range of motion of the lumbar spine Flexion 30 degrees, extension 10 degrees Straight Leg Raise test: Left/ Right p ositive at degrees Makenna test: positive right / positive left. Severe tenderness over the Sacroiliac joint on the Right / Left sides Gaenslen test: positive bilaterally Seated flexion test: positive bilaterally. Sacral spine : Severe tenderness over the Sacroiliac joint: right side / left side Range of motion: Flexion of the lumbar spine <60 degrees Range of motion: Extension of the lumbar spine <20 degrees Gaenslen's Test positive Makenna test: positive right side / left side Thigh Thrust Test Sacral Thrust Test Imaging: CT non contrast lumbar spine from 04/07/23 reviewed Assessment/ Plan : T12-L2 ORIF post laminectomy syndrome Recommendation of DEMETRIUS CALDERÓN L5-S1 #2. Risks, benefits of procedure discussed and patient verbalized understanding. Admits to anti- coagulant use or medical history of diabetes. Protocol for discontinuation/ continuation of medications margarita procedure discussed. Minimal anesthesia provided, if clinically indicated, consisting of Versed and Fentanyl. All questions answered. I have spent greater than 30 minutes on patient care today. Dr Romo was available by phone for the evaluation of this patient. The time was used to review the medical records including relevant urine studies and Prescription history (MAPs), review of the available imaging, evaluation and examination of the patient, coordination of care with the medical staff and if applicable referring physicians, as well as creation of the medical record - Pain Location Lower Back Pharmacological Interventions: Epidural PQRS Narrative: Smoking Status Former smoker Blood Pressure 156/82 Pain Intensity [Lower Back] 4 Scale Used Numeric (1 - 10) Hx Alcohol Use (MH) No Home Medications: Ambulatory Orders Finasteride [Proscar] 5 mg PO DAILY 10/11/16 Levothyroxine Sodium [Synthroid] 50 mcg PO DAILY 10/11/16 Terazosin HCl [Hytrin] 10 mg PO HS 10/11/16 buPROPion HCL [Wellbutrin XL] 150 mg PO QAM 10/11/16 fluvoxaMINE MALEATE [Fluvoxamine Maleate] 100 mg PO DAILY 10/11/16 metFORMIN HCL [Glucophage] 1,000 mg PO DAILY 10/11/16 Acetaminophen-Codeine 300-30mg [Tylenol w/codeine #3] 1 tab PO Q4H PRN 3 Days #18 tablet 10/28/23 Controlled Substance Measures - Controlled Substance Measures Is patient prescribed a controlled substance at discharge?: No
== END ==
LOC: PNWHC3 09:42
PROVIDERS: ATTEND Specialist
DX: M96.1 Postlaminectomy syndrome, not elsewhere classified (principal); Z98.890 Other specified postprocedural states; Z87.891 Personal history of nicotine dependence
CPT/HCPCS: 99211

== ENCOUNTER → 2024-01-10 | Outpatient (CLI) | payer MEDICARE, OTHER ==
[2024-01-10 20:11] LABS: Basophils # (A) 0.04 X 10*3/uL (0.00-0.10); Basophils % (A) 0.6 %; Eosinophils # (A) 0.09 X 10*3/uL (0.04-0.35); Eosinophils % (A) 1.3 %; HCT 40.5 % (39.6-50.0); Lymphocytes # (A) 1.68 X 10*3/uL (0.90-5.00); Lymphocytes % (A) 24.3 %; MCH 29.4 pg (27.0-32.0); MCHC 32.1 g/dL (32.0-37.0); MCV 91.6 FL (80.0-97.0); Mean Platelet Volume 11.7 FL (9.5-12.2); Monocytes # (A) 0.66 X 10*3/uL (0.20-1.00); Monocytes % (A) 9.5 %; NRBC Per 100 WBC 0 X 10*3/uL (0.00-0.01); Neutrophils # (A) 4.41 X 10*3/uL (1.80-7.70); Neutrophils % (A) 63.7 %; Platelet Count 207 X 10*3/uL (140-440); RBC 4.42 X 10*6/uL (4.40-5.60); RDW 13.6 % (11.5-14.5); WBC 6.92 X 10*3/uL (4.50-10.00)
[2024-01-10 20:31] LABS: ALT 19 U/L (10-49); AST 17 U/L (14-35); Albumin 4.4 g/dL (3.8-4.9); Albumin/Globulin Ratio 1.91 Ratio (1.60-3.17); Alkaline Phosphatase 109 U/L (41-126); Blood Urea Nitrogen 20.2 mg/dL (9.0-27.0); Calcium 9.5 mg/dL (8.7-10.3); Carbon Dioxide 23.6 mmol/L (21.6-31.8); Chloride 103 mmol/L (96-109); Globulin 2.3 g/dL (1.6-3.3); Glucose 127 mg/dL (70-110); Potassium 5.1 mmol/L (3.5-5.5); Sodium 139 mmol/L (135-145); Total Bilirubin 0.3 mg/dL (0.3-1.2); Total Protein 6.7 g/dL (6.2-8.2)
== END | disposition home or self-care (01) ==
LOC: LABPAT 13:37
PROVIDERS: ATTEND Orthopaedic Surgery
DX: Z01.818 Encounter for other preprocedural examination (principal); M54.59 Other low back pain; R94.31 Abnormal electrocardiogram [ECG] [EKG]
CPT/HCPCS: 80053; 85025

== ENCOUNTER 2024-01-14 05:34 | Day surgery (SDC) | payer MEDICARE, OTHER ==
[~2024-01-14 05:34] MED LIST changes: -LACTATED RINGERS 1,000 ML IV SCH; -LIDOCAINE 1% 20 ML VIAL (10MG/ML) FOR IV START INTRADERMA PRN; +ONDANSETRON 4 MG/2 ML VIAL IVP PRN; +TRANEXAMIC 1,000 MG/100ML-NACL 1,000 MG in SALINE 1 100ML.BAG IVPB PRN
[2024-01-14] MEDS ORDERED: LIDOCAINE 1% (10MG/ML) FOR IV START INTRADERMA PRN (05:42)
[2024-01-14] MEDS: IV FLUID CONTINUATION 1,000 ML IV ONE ×4 (06:19)
--- NOTE | 2024-01-14 06:30 | P.HPOR ---
History of Present Illness H&P Date: 01/01/24 PRE-OPERATIVE H&P HISTORY OF PRESENT ILLNESS: Patient with documented bilateral L5-S1 severe facet arthritiscausing chronic low back pain that worsens with activity. Conservative management including medications, physical therapy, and activity modification has provided limited relief. Facet blocks rendered positive results with >50% relief of sx but this was transient. Pt presents for surgical discussion. PHYSICAL EXAM: Patient demonstrates tenderness in L5-S1 region with restricted lumbar range of motion. Neurologically intact with full strength and normal reflexes. Pain with ROM of thelumbar spine specifically in extension and rotation at the L4-S1 region with TTP over the L4-S1 region paraspinal and facets. No SIJ TTP at this time. NV intact distally. Incisions well healed from previous surgery. PLANNED PROCEDURE: L4-S1 Medial Branch Transection BENEFITS: - Potential reduction in chronic back pain - Improved function and quality of life - Minimally invasive outpatient procedure RISKS: - Pain/soreness at procedure site - Infection - Bleeding - Nerve injury - Temporary numbness - Incomplete or no pain relief - Need for repeat procedure ASSESSMENT: Bilateral L5-S1 facet arthropathy with chronic pain refractory to conservative management. Patient is an appropriate candidate for medial branch transection given documented pathology and symptoms. PLAN: Proceed with bilateral L4-S1 medial branch radiofrequency ablation under fluoroscopic guidance. Post-procedure instructions and follow-up plan will be provided at [place]. Discussion was had with patient. He understands risks and benefits as they were presented in the risk review and he is agreeable to proceeding with surgery. Past Medical History Past Medical History: Coronary Artery Disease (CAD), Cancer, Diabetes Mellitus, Hyperlipidemia, Hypertension, Osteoarthritis (OA), Sleep Apnea/CPAP/BIPAP Additional Past Medical History / Comment(s): chronic back pain radiating tati legs to knee area,compression fx L1 Mar 2023,edema tati lower extremitiesC-PAP , SKIN CANCER History of Any Multi-Drug Resistant Organisms: None Reported Past Surgical History: Hernia Repair, Tonsillectomy Additional Past Surgical History / Comment(s): COLONOSCOPY , HIATAL HERNIA REPAIR , TATI CARPAL TUNNEL RELEASE , ARTHROSCOPIC RIGHT SHOULDER,stabalization of compression fx L1 Past Anesthesia/Blood Transfusion Reactions: No Reported Reaction Additional Past Anesthesia/Blood Transfusion Reaction / Comment(s): no hx blood transfsuion Smoking Status: Former smoker - Past Family History Brother(s) Family Medical History: Cancer Medications and Allergies Home Medications Medication Instructions Recorded Confirmed Type Finasteride [Proscar] 5 mg PO DAILY 10/11/16 01/14/24 History Levothyroxine Sodium [Synthroid] 50 mcg PO DAILY 10/11/16 01/14/24 History Terazosin HCl [Hytrin] 10 mg PO HS 10/11/16 01/14/24 History buPROPion HCL [Wellbutrin XL] 150 mg PO QAM 10/11/16 01/14/24 History fluvoxaMINE MALEATE [Fluvoxamine 100 mg PO DAILY 10/11/16 01/14/24 History Maleate] metFORMIN HCL [Glucophage] 1,000 mg PO DAILY 10/11/16 01/14/24 History Acetaminophen-Codeine 300-30mg 1 tab PO Q4H PRN 3 Days #18 tablet 10/28/23 01/14/24 Rx [Tylenol w/codeine #3] carvediloL [Coreg] 3.125 mg PO BID 01/10/24 01/14/24 History Allergies Allergy/AdvReac Type Severity Reaction Status Date / Time No Known Allergies Allergy Verified 01/14/24 06:19 Physical Examination Osteopathic Statement: *. No significant issues noted on an osteopathic structural exam other than those noted in the History and Physical/Consult.
[2024-01-14 06:42] LABS: Glucose,Whole Blood 132 mg/dL (70-110)
[2024-01-14] MEDS: GABAPENTIN 300 MG CAP PO PRN (06:58)
[2024-01-14] MEDS: ONDANSETRON 4 MG/2 ML VIAL IVP ONE (06:59)
[2024-01-14] MEDS: ACETAMINOPHEN TAB 500 MG TAB PO PRN (06:59)
[2024-01-14] MEDS: DEXAMETHASONE SOD PHOSPHATE 4 MG/ML 1 ML VIAL IV ONE (06:59)
[2024-01-14] MEDS: LACTATED RINGERS 1,000 ML IV SCH (06:59)
[2024-01-14] MEDS ORDERED: fentaNYL (PF) 50 MCG/ML 2 ML AMP IVP PRN (07:00)
[2024-01-14] MEDS ORDERED: MIDAZOLAM 2 MG/2 ML VIAL IV PRN (07:00)
[2024-01-14] MEDS ORDERED: HYDROmorphone 0.5 MG/0.5 ML SYRINGE IVP PRN (07:00)
[2024-01-14] MEDS ORDERED: NEOSTIGMINE 1 MG/ML 10 ML VIAL ONE (07:25)
[2024-01-14] MEDS ORDERED: ROCURONIUM 10 MG/ML (5 ML VIAL) IV ONE (07:25)
[2024-01-14] MEDS ORDERED: ePHEDrine 50 MG/ML 1 ML VIAL ONE (07:25)
[2024-01-14] MEDS ORDERED: SUCCINYLCHOLINE CHLORIDE 200 MG/10 ML VIAL IV ONE (07:25)
[2024-01-14] MEDS ORDERED: LIDOCAINE 1% INJ 10MG/ML (20 ML MDV) ONE (07:25)
[2024-01-14] MEDS ORDERED: GLYCOPYRROLATE 0.2 MG/ML 2 ML VIAL ONE (07:25)
[2024-01-14] MEDS ORDERED: fentaNYL (PF) 50 MCG/ML 2 ML AMP ONE (07:25)
[2024-01-14] MEDS ORDERED: PROPOFOL 10 MG/ML 20 ML VIAL IV ONE (07:25)
[2024-01-14] MEDS: LIDOCAINE 2%-EPI 1:100,000 20 ML VIAL SQ ONE (07:53)
[2024-01-14] MEDS: BUPIVACAINE (PF) 0.5% 30 ML VIAL SQ ONE (07:53)
--- NOTE | 2024-01-14 08:48 | P.OP ---
Date of Procedure: 01/14/24 Preoperative Diagnosis: 1. L4-5 L5-S1 facet arthrosis bilaterally severe 2. Low back pain 3. History of fusion 4. Complex medical patient Postoperative Diagnosis: 1. L4-5 L5-S1 facet arthrosis bilaterally severe 2. Low back pain 3. History of fusion 4. Complex medical patient Procedure(s) Performed: 1. L4-5 bilateral medial branch transection under direct visualization 2. L5-S1 bilateral medial branch transection under direct visualization Implants: None Anesthesia: GETA Surgeon: Mk Beebe Analyst Competitive Intelligence #1: Con Acevedo ([facility] Light Was present and assisted with all aspects of the case from positioning to dressing placement) Estimated Blood Loss (ml): 10 IV fluids (ml): 900 Urine output (ml): 0 Pathology: none sent Condition: stable Disposition: PACU Indications for Procedure: 73-year-old male presents for bilateral L4-S1 facet arthrosis and spondylosis. He presents today for medial branch transection endoscopic of the L4-S1 region bilaterally. Risk and benefits discussed again with the patient he is willing to proceed with the surgery today. Consent was signed site was marked. Description of Procedure: BILATERAL L4-S1 ENDOSCOPIC MBT The patient was seen and examined in the preoperative area. All preoperative protocols were followed. Informed consent was obtained, risks and benefits of the procedure were discussed at length. Risks including bleeding, infection, damage to the surrounding tissue and risk of reoperation were discussed with the patient. Risk of anesthesia up to and including was discussed with the patient. These are outlined in the risk review. They were willing to accept these risks and all of the risks of surgery. The patient was given a weight- based dose of antibiotics in the form of 2 g Ancef. The patient was seen and evaluated by the anesthesia team who deemed them fit for surgery. The sites were marked, the patient was willing to proceed with the procedure. The patient was transferred to the operative suite by the Department of anesthesia. They were then drifted off to sleep by the department anesthesia and GETA was performed. The patient tolerated this well. Once confirmation of lines and ventilation the patient was transferred to a prone Trav table very carefully. All bony prominences including wrists, elbows, axilla, chest, hips, and thighs, and feet were padded very well. Special attention was paid to the genitalia and these were padded accordingly. SCDs were placed on bilateral lower extremities and were connected. Arms were well padded and placed on arm boards up and out in the 90/90 position. Once in position, again we confirmed good ventilation capabilities and that lines were running appropriately. The patient's lumbar spine was then exposed. 1010s were placed outlining the incision sites. Standard alcohol was used to clean the incision sites and allowed to dry. C-arm was used to biomark the patient and confirm levels for incision which were marked with a skin marker. Operative briefing was performed with all teams and everyone in agreement to proceed. The patient was then prepped and draped in a normal sterile fashion. Timeout was then performed and all parties were in agreement with the procedure to be performed. Starting on the right side, an 18-gauge needle was used to localize the L4-L5 and L5-S1 facet joints. Lidocaine 2% with epi and Marcaine .25% w/o placed in these areas. Skin nicks were then made and a trocar for the scope was entered. X-ray used to localize these areas. Once this was confirmed, accessory portals were made and trocars placed through here. We then used the ArthroCare wand to skeletonize the transverse processes on the right-hand side at L4-L5 and L5-S1 as well as sacral ala. This was then followed out medially until the L4-L5 and L5-S1 facet joints medially and mamillary processes were identified as well as the ligaments in these areas. Nerves were identified at L4-L5 and L5-S1 levels and visualized directly when they were transected. ArthroCare wand was then used to burn the areas to retract the nerve ends. The procedure was then repeated on the left side in identical fashion at L4-L5 and L5-S1 levels. The scope was lavaged with pictures taken in these areas and inspected; there was no damage or issues and no bleeding. The scopes were removed. The wounds were then cleaned and simple stitches were placed in the skin and they were glued. These were then dressed sterilely with Band-Aids. The patient was transferred back to their hospital bed atraumatically. Patient was then awakened and extubated by the department of anesthesia having tolerated the procedure very well with no complications. They were transferred to the postoperative care unit in stable condition.
[2024-01-14 09:09] VITALS: TEMP 97.5
[2024-01-14 09:15] LABS: Glucose,Whole Blood 182 mg/dL (70-110)
[2024-01-14 11:19] VITALS: BP 159/70; PULSE 60; RESP 14
[2024-01-14 11:19] LABS: Glucose,Whole Blood 153 mg/dL (70-110)
--- NOTE | 2024-01-14 11:46 | FL ---
EXAMINATION TYPE: FL guidance operating room, XR lumbar spine 2 or 3V DATE OF EXAM: 01/14/2024 9:04 AM COMPARISON: None CLINICAL INDICATION: Male, 73 years old with history of L4-S1 Transection, , Fluoroscopy: 46 sec fluoro, dap 11.951 Gycm2, L4-S1 transection. One image provided. [facility], , 01/14/2024 11:44 AM
== END 2024-01-14 11:50 | disposition home or self-care (01) ==
LOC: OR 05:34
PROVIDERS: ATTEND Orthopaedic Surgery
DX: M47.816 Spondylosis without myelopathy or radiculopathy, lumbar region (principal); M47.817 Spondylosis without myelopathy or radiculopathy, lumbosacral region; G89.29 Other chronic pain; I10 Essential (primary) hypertension; I25.10 Atherosclerotic heart disease of native coronary artery without angina pectoris; E11.9 Type 2 diabetes mellitus without complications; E78.5 Hyperlipidemia, unspecified; G47.33 Obstructive sleep apnea (adult) (pediatric); F41.9 Anxiety disorder, unspecified; F32.A Depression, unspecified; F42.9 Obsessive-compulsive disorder, unspecified; Z79.890 Hormone replacement therapy; Z79.85 Long-term (current) use of injectable non-insulin antidiabetic drugs; Z79.899 Other long term (current) drug therapy; Z87.891 Personal history of nicotine dependence; Z98.1 Arthrodesis status
CPT/HCPCS: 64999; 72100; J0330; J1100; J2710; J0690; J2405; J2003; J3010; J2704; J0665; J1596

== ENCOUNTER 2024-01-15 14:58 | Emergency (ER) | payer MEDICARE, OTHER ==
[2024-01-15 15:03] VITALS: BP 144/85; PULSE 104; RESP 20; TEMP 97.9
[2024-01-15 15:43] LABS: Appearance,Urine Clear (Clear); Bilirubin,Urine Negative (Negative); Blood,Urine Negative (Negative); Color,Urine Colorless; Glucose,Urine (UA) 1+ (Negative); Ketones,Urine Negative (Negative); Leukocyte Esterase,Urine Negative (Negative); Nitrite,Urine Negative (Negative); Protein,Urine Negative (Negative); Specific Gravity,Urine 1.013 (1.001-1.035); Urobilinogen,Urine <2.0 mg/dL (<2.0)
--- NOTE | 2024-01-15 15:53 | ED ---
Male Urogenital HPI - General Chief complaint: Urogenital Stated complaint: Urogenital Time Seen by Provider: 01/15/24 15:12 Source: patient, RN notes reviewed, old records reviewed, Caregiver Mode of arrival: ambulatory Limitations: no limitations - History of Present Illness Initial comments: This is a 73-year-old male with back surgery 2 days ago coming in for severe abdominal pain and inability urinate today. Patient was restless all night and inability unable to urinate throughout the morning today MD Complaint: other (Abdominal pain) -: hour(s) Location: abdomen Severity: severe Severity scale (1-10): 10 Consistency: constant Improves with: none Worsens with: none recent surgery Reports: denies other symptoms - Related Data Home Medications Medication Instructions Recorded Confirmed Finasteride [Proscar] 5 mg PO DAILY 10/11/16 01/14/24 Levothyroxine Sodium [Synthroid] 50 mcg PO DAILY 10/11/16 01/14/24 Terazosin HCl [Hytrin] 10 mg PO HS 10/11/16 01/14/24 buPROPion HCL [Wellbutrin XL] 150 mg PO QAM 10/11/16 01/14/24 fluvoxaMINE MALEATE [Fluvoxamine 100 mg PO DAILY 10/11/16 01/14/24 Maleate] metFORMIN HCL [Glucophage] 1,000 mg PO DAILY 10/11/16 01/14/24 carvediloL [Coreg] 3.125 mg PO BID 01/10/24 01/14/24 Previous Rx's Medication Instructions Recorded Acetaminophen-Codeine 300-30mg 1 tab PO Q4H PRN 3 Days #18 tablet 10/28/23 [Tylenol w/codeine #3] HYDROcodone/APAP 5-325MG [[place] 1 tab PO Q6HR PRN #28 tab 01/14/24 5-325] Sennosides/Docusate Sodium 2 each PO DAILY PRN #30 tablet 01/14/24 [Senna-S 8.6-50 mg Tablet] cefaDROXiL [Duricef] 500 mg PO Q12HR 3 Days #6 cap 01/14/24 Allergies Allergy/AdvReac Type Severity Reaction Status Date / Time No Known Allergies Allergy Verified 01/15/24 15:04 Review of Systems ROS Statement: Those systems with pertinent positive or pertinent negative responses have been documented in the HPI. ROS Other: All systems not noted in ROS Statement are negative. Past Medical History Past Medical History: Coronary Artery Disease (CAD), Cancer, Diabetes Mellitus, Hyperlipidemia, Hypertension, Osteoarthritis (OA), Sleep Apnea/CPAP/BIPAP Additional Past Medical History / Comment(s): chronic back pain radiating atti legs to knee area,compression fx L1 Mar 2023,edema tati lower extremitiesC-PAP , SKIN CANCER History of Any Multi-Drug Resistant Organisms: None Reported Past Surgical History: Hernia Repair, Tonsillectomy Additional Past Surgical History / Comment(s): COLONOSCOPY , HIATAL HERNIA REPAIR , TATI CARPAL TUNNEL RELEASE , ARTHROSCOPIC RIGHT SHOULDER,stabalization of compression fx L1 Past Anesthesia/Blood Transfusion Reactions: No Reported Reaction Additional Past Anesthesia/Blood Transfusion Reaction / Comment(s): no hx blood transfsuion Past Psychological History: Anxiety, Depression Smoking Status: Former smoker Past Alcohol Use History: None Reported Past Drug Use History: None Reported - Past Family History Brother(s) Family Medical History: Cancer General Exam Limitations: no limitations General appearance: alert, in no apparent distress, anxious Head exam: Present: atraumatic, normocephalic, normal inspection Eye exam: Present: normal appearance, PERRL, EOMI. Absent: scleral icterus, conjunctival injection, periorbital swelling ENT exam: Present: normal exam, mucous membranes moist Neck exam: Present: normal inspection. Absent: tenderness, meningismus, lymphadenopathy Respiratory exam: Present: normal lung sounds bilaterally. Absent: respiratory distress, wheezes, rales, rhonchi, stridor Cardiovascular Exam: Present: regular rate, normal rhythm, normal heart sounds. Absent: systolic murmur, diastolic murmur, rubs, gallop, clicks GI/Abdominal exam: Present: soft, normal bowel sounds. Absent: distended, tenderness, guarding, rebound, rigid Extremities exam: Present: normal inspection, full ROM, normal capillary refill. Absent: tenderness, pedal edema, joint swelling, calf tenderness Back exam: Present: normal inspection Neurological exam: Present: alert, oriented X3, CN II-XII intact Psychiatric exam: Present: normal affect, normal mood Skin exam: Present: warm, dry, intact, normal color. Absent: rash Course Vital Signs 01/15/24 14:59 Temperature 97.9 F Pulse Rate 104 H Respiratory 20 Rate Blood Pressure 144/85 O2 Sat by Pulse 94 L Oximetry - Reevaluation(s) Reevaluation #1: 01/15/24 16:05 Medical records reviewed Reevaluation #2: 01/15/24 16:05 Catheter was placed pain is relieved Reevaluation #3: 01/15/24 16:05 Patient informed of results questions answered Reevaluation #4: Was pt. sent in by a medical professional or institution (, MINO, CHIEF CLINICAL DIETITIAN, urgent care, hospital, or fdc...) When possible be specific @ -no Did you speak to anyone other than the patient for history (EMS, parent, family, police, friend...)? What history was obtained from this source @ -no Did you review nursing and triage notes (agree or disagree)? Why? @ -agree Are old charts reviewed (outside hosp., previous admission, EMS record, old EKG, old radiological studies, urgent care reports/EKG's, fdc records)? Report findings @ -yes Differential Diagnosis (chest pain, altered mental status, abdominal pain women, abdominal pain men, vaginal bleeding, weakness, fever, dyspnea, syncope, headache, dizziness, GI bleed, back pain, seizure, CVA, palpatations, mental health, musculoskeletal)? @ -prior EKG interpreted by me (3pts min.). @ -yes X-rays interpreted by me (1pt min.). @ -yes negative for acute disease CT interpreted by me (1pt min.). @ -no U/S interpreted by me (1pt. min.). @ -no What testing was considered but not performed or refused? (CT, X-rays, U/S, labs)? Why? @ -none What meds were considered but not given or refused? Why? @ -none Did you discuss the management of the patient with other professionals (professionals i.e. MINO Ferrer, CHIEF CLINICAL DIETITIAN, lab, RT, psych nurse, high school social science teacher, weathercaster, teacher, licensing officer, case liner)? Give summary @ -no Was smoking cessation discussed for >3mins.? @ -no Was critical care preformed (if so, how long)? @ -no Were there social determinants of health that impacted care today? How? (Homelessness, low income, unemployed, alcoholism, drug addiction, transportation, low edu. Level, literacy, decrease access to med. care, senior living, rehab)? @ -none Was there de-escalation of care discussed even if they declined (Discuss DNR or withdrawal of care, Hospice)? DNR status @ -no What co-morbidities impacted this encounter? (DM, HTN, Smoking, COPD, CAD, Cancer, CVA, ARF, Chemo, Hep., AIDS, mental health diagnosis, sleep apnea, morbid obesity)? @ -none Was patient admitted / discharged? Hospital course, mention meds given and route, prescriptions, significant lab abnormalities, going to OR and other pertinent info. @ - Undiagnosed new problem with uncertain prognosis? @ -no Drug Therapy requiring intensive monitoring for toxicity (Heparin, Nitro, Insulin, Cardizem)? @ -no Were any procedures done? @ -no Diagnosis/symptom? @ - Acute, or Chronic, or Acute on Chronic? @ -Acute Uncomplicated (without systemic symptoms) or Complicated (systemic symptoms)? @ -Complicated Side effects of treatment? @ -no Exacerbation, Progression, or Severe Exacerbation? @ -exacerbation Poses a threat to life or bodily function? How? (Chest pain, [place], [place], pneumonia, PE, COPD, DKA, ARF, appy, cholecystitis, CVA, Diverticulitis, Homicidal, Suicidal, threat to staff... and all critical care pts) @ -yes Reevaluation #5: Differential Abdominal Pain Men: Appendicitis, cholecystitis, diverticulosis, ischemic bowel, pancreatitis, hepatitis, UTI, gastroenteritis, AAA, incarcerated hernia, bowel obstruction, constipation, inflammatory bowel, hepatitis, peptic ulcer disease, splenic infarction, perforated viscus, testicular torsion, this is not meant to be an all-inclusive list Medical Decision Making - Medical Decision Making 73 male for postoperative urinary retention, Cintron catheter placed patient will be discharged with Cintron catheter to follow-up with urology - Lab Data Lab Results 01/15/24 Range/Units 15:37 Urine Color Colorless Urine Appearance Clear (Clear) Urine pH 5.0 (5.0-8.0) Ur Specific [place] 1.013 (1.001-1.035) Urine Protein Negative (Negative) Urine Glucose (UA) 1+ H (Negative) Urine Ketones Negative (Negative) Urine Blood Negative (Negative) Urine Nitrite Negative (Negative) Urine Bilirubin Negative (Negative) Urine Urobilinogen <2.0 (<2.0) mg/dL Ur Leukocyte Esterase Negative (Negative) Disposition Clinical Impression: Urinary retention Disposition: HOME SELF-CARE Condition: Good Instructions (If sedation given, give patient instructions): Urinary Retention in Men (ED) Is patient prescribed a controlled substance at d/c from ED?: No Referrals: Kelly Nguyen DO [Primary Care Provider] - 1-2 days Cuate Leonard MD [STAFF PHYSICIAN] - 1-2 days Time of Disposition: 16:00
== END 2024-01-15 17:05 | disposition home or self-care (01) ==
LOC: EC 14:58
DX: R33.9 Retention of urine, unspecified (principal); Z87.891 Personal history of nicotine dependence
CPT/HCPCS: 51702; 81003; 99283

== ENCOUNTER 2024-01-17 10:59 | Emergency (ER) | payer MEDICARE, OTHER ==
[2024-01-17 11:18] VITALS: RESP 18
[2024-01-17 13:21] LABS: Appearance,Urine Cloudy (Clear); Bilirubin,Urine Negative (Negative); Blood,Urine Large (Negative); Calcium Oxalate Crystals,Urine Rare /hpf; Color,Urine Yellow; Glucose,Urine (UA) Negative (Negative); Ketones,Urine Negative (Negative); Leukocyte Esterase,Urine Moderate (Negative); Mucus,Urine Few /hpf; Nitrite,Urine Negative (Negative); PH, Urine 5.5 (5.0-8.0); Protein,Urine 1+ (Negative); RBC,Urine >182 /hpf (0-5); Specific Gravity,Urine 1.022 (1.001-1.035); Urobilinogen,Urine <2.0 mg/dL (<2.0); WBC,Urine 16 /hpf (0-5)
--- NOTE | 2024-01-17 13:35 | ED ---
Male Urogenital HPI - General Chief complaint: Urogenital Stated complaint: Cath Issues Time Seen by Provider: 01/17/24 11:19 Source: patient, family, RN notes reviewed Mode of arrival: ambulatory Limitations: no limitations - History of Present Illness Initial comments: 73-year-old male presenting with Cintron catheter issue. States he was seen 2 days ago for urinary retention and Cintron catheter was placed at that time. Patient states the Cintron catheter has been causing him discomfort and would like it was removed. States he has had difficulty following up with urologist due to it being the holiday weekend. Denies abdominal pain, fever, chills. - Related Data Home Medications Medication Instructions Recorded Confirmed Finasteride [Proscar] 5 mg PO DAILY 10/11/16 01/14/24 Levothyroxine Sodium [Synthroid] 50 mcg PO DAILY 10/11/16 01/14/24 Terazosin HCl [Hytrin] 10 mg PO HS 10/11/16 01/14/24 buPROPion HCL [Wellbutrin XL] 150 mg PO QAM 10/11/16 01/14/24 fluvoxaMINE MALEATE [Fluvoxamine 100 mg PO DAILY 10/11/16 01/14/24 Maleate] metFORMIN HCL [Glucophage] 1,000 mg PO DAILY 10/11/16 01/14/24 carvediloL [Coreg] 3.125 mg PO BID 01/10/24 01/14/24 Previous Rx's Medication Instructions Recorded Acetaminophen-Codeine 300-30mg 1 tab PO Q4H PRN 3 Days #18 tablet 10/28/23 [Tylenol w/codeine #3] HYDROcodone/APAP 5-325MG [[place] 1 tab PO Q6HR PRN #28 tab 01/14/24 5-325] Sennosides/Docusate Sodium 2 each PO DAILY PRN #30 tablet 01/14/24 [Senna-S 8.6-50 mg Tablet] cefaDROXiL [Duricef] 500 mg PO Q12HR 3 Days #6 cap 01/14/24 Allergies Allergy/AdvReac Type Severity Reaction Status Date / Time No Known Allergies Allergy Verified 01/17/24 11:15 Review of Systems ROS Statement: Those systems with pertinent positive or pertinent negative responses have been documented in the HPI. ROS Other: All systems not noted in ROS Statement are negative. Past Medical History Past Medical History: Coronary Artery Disease (CAD), Cancer, Diabetes Mellitus, Hyperlipidemia, Hypertension, Osteoarthritis (OA), Sleep Apnea/CPAP/BIPAP Additional Past Medical History / Comment(s): chronic back pain radiating tati legs to knee area,compression fx L1 Mar 2023,edema tati lower extremitiesC-PAP , SKIN CANCER History of Any Multi-Drug Resistant Organisms: None Reported Past Surgical History: Hernia Repair, Tonsillectomy Additional Past Surgical History / Comment(s): COLONOSCOPY , HIATAL HERNIA REPAIR , TATI CARPAL TUNNEL RELEASE , ARTHROSCOPIC RIGHT SHOULDER,stabalization of compression fx L1 Past Anesthesia/Blood Transfusion Reactions: No Reported Reaction Additional Past Anesthesia/Blood Transfusion Reaction / Comment(s): no hx blood transfsuion Past Psychological History: Anxiety, Depression Smoking Status: Former smoker Past Alcohol Use History: None Reported Past Drug Use History: None Reported - Past Family History Brother(s) Family Medical History: Cancer General Exam Limitations: no limitations General appearance: alert, in no apparent distress Head exam: Present: atraumatic, normocephalic, normal inspection GI/Abdominal exam: Present: soft, normal bowel sounds. Absent: distended, tenderness, guarding, rebound, rigid Back exam: Absent: CVA tenderness (R), CVA tenderness (L) Neurological exam: Present: alert, oriented X3 Psychiatric exam: Present: normal affect, normal mood Skin exam: Present: warm, dry, intact, normal color. Absent: rash Course Vital Signs 01/17/24 11:15 Temperature 98.6 F Pulse Rate 93 Respiratory 18 Rate Blood Pressure 131/63 O2 Sat by Pulse 97 Oximetry Medical Decision Making - Medical Decision Making Was pt. sent in by a medical professional or institution (, PA, PREKINDERGARTEN TEACHER, urgent care, hospital, or snf...) When possible be specific @ -No Did you speak to anyone other than the patient for history (EMS, parent, family, police, friend...)? What history was obtained from this source @ -No Did you review nursing and triage notes (agree or disagree)? Why? @ -I reviewed and agree with nursing and triage notes Were old charts reviewed (outside hosp., previous admission, EMS record, old EKG, old radiological studies, urgent care reports/EKG's, snf records)? Report findings @ -Previous ER visit from 2 days ago was reviewed Differential Diagnosis (chest pain, altered mental status, abdominal pain women, abdominal pain men, vaginal bleeding, weakness, fever, dyspnea, syncope, headache, dizziness, GI bleed, back pain, seizure, CVA, palpatations, mental health, musculoskeletal)? @ -Not applicable EKG interpreted by me (3pts min.). @ -None X-rays interpreted by me (1pt min.). @ -None done CT interpreted by me (1pt min.). @ -None done U/S interpreted by me (1pt. min.). @ -None done What testing was considered but not performed or refused? (CT, X-rays, U/S, labs)? Why? @ -None What meds were considered but not given or refused? Why? @ -None Did you discuss the management of the patient with other professionals (professionals i.e. , PA, PREKINDERGARTEN TEACHER, lab, RT, psych nurse, social sciences department chair, machine bender, teacher, special technical operations officer, complex case manager)? Give summary @ -No Was smoking cessation discussed for >3mins.? @ -No Was critical care preformed (if so, how long)? @ -No Were there social determinants of health that impacted care today? How? (Homelessness, low income, unemployed, alcoholism, drug addiction, tra nsportation, low edu. Level, literacy, decrease access to med. care, usp, rehab)? @ -No Was there de-escalation of care discussed even if they declined (Discuss DNR or withdrawal of care, Hospice)? DNR status @ -No What co-morbidities impacted this encounter? (DM, HTN, Smoking, COPD, CAD, Cancer, CVA, ARF, Chemo, Hep., AIDS, mental health diagnosis, sleep apnea, morbid obesity)? @ -None Was patient admitted / discharged? Hospital course, mention meds given and route, prescriptions, significant lab abnormalities, going to OR and other pertinent info. @ -Discharge. This is a 73-year-old male presenting with Cintron catheter issues s/p placement 2 days ago for urinary retention. No red flag symptoms or sign of bacterial infection. UA remarkable for large blood, moderate bacteria, Likely contamination from Cintron, low suspicion for UTI. Cintron catheter was replaced and patient reports improvement of symptoms. Appropriate return precautions and follow-up care discussed. Case was discussed with the ED attending Dr. Armijo Undiagnosed new problem with uncertain prognosis? @ -No Drug Therapy requiring intensive monitoring for toxicity (Heparin, Nitro, Insulin, Cardizem)? @ -No Were any procedures done? @ -No Diagnosis/symptom? @ -Cintron catheter issue Acute, or Chronic, or Acute on Chronic? @ -Acute Uncomplicated (without systemic symptoms) or Complicated (systemic symptoms)? @ -Uncomplicated Side effects of treatment? @ -No Exacerbation, Progression, or Severe Exacerbation? @ -No Poses a threat to life or bodily function? How? (Chest pain, [place], [place], pneumonia, PE, COPD, DKA, ARF, appy, cholecystitis, CVA, Diverticulitis, Homicidal, Suicidal, threat to staff... and all critical care pts) @ -No - Lab Data Lab Results 01/17/24 Range/Units 12:33 Urine Color Yellow Urine Appearance Cloudy (Clear) Urine pH 5.5 (5.0-8.0) Ur Specific [place] 1.022 (1.001-1.035) Urine Protein 1+ H (Negative) Urine Glucose (UA) Negative (Negative) Urine Ketones Negative (Negative) Urine Blood Large H (Negative) Urine Nitrite Negative (Negative) Urine Bilirubin Negative (Negative) Urine Urobilinogen <2.0 (<2.0) mg/dL Ur Leukocyte Esterase Moderate H (Negative) Urine RBC >182 H (0-5) /hpf Urine WBC 16 H (0-5) /hpf Calcium Oxalate Crystal Rare H (None) /hpf Urine Mucus Few H (None) /hpf Disposition Clinical Impression: Cintron catheter problem Disposition: HOME SELF-CARE Condition: Stable Instructions (If sedation given, give patient instructions): Cintron Catheter Placement and Care (ED) Additional Instructions: Follow-up with urology. Please return to the Emergency Department if symptoms worsen or any other concerns. Is patient prescribed a controlled substance at d/c from ED?: No Referrals: Kelly Nguyen DO [Primary Care Provider] - 1-2 days Time of Disposition: 13:35
[2024-01-17 13:50] VITALS: BP 128/71; PULSE 90; TEMP 98.4
== END 2024-01-17 13:50 | disposition home or self-care (01) ==
LOC: EC 10:59
DX: T83.098A Other mechanical complication of other urinary catheter, initial encounter (principal); Z87.891 Personal history of nicotine dependence; Z90.89 Acquired absence of other organs
CPT/HCPCS: 51702; 81001; 99283

== ENCOUNTER 2024-01-28 08:17 | Emergency (ER) | payer MEDICARE, OTHER ==
[2024-01-28 08:30] VITALS: RESP 18
--- NOTE | 2024-01-28 09:02 | ED ---
Male Urogenital HPI - General Chief complaint: Urogenital Stated complaint: Abd blockage Time Seen by Provider: 01/28/24 08:33 Source: patient, RN notes reviewed Mode of arrival: ambulatory Limitations: no limitations - History of Present Illness Initial comments: This is a 73-year-old male who presents to the emergency department for urinary retention. Patient had a Cintron catheter placed in the emergency department at the end of December for urinary retention. He followed up with Dr. Leonard yesterday and had the Cintron catheter removed. States that it was removed around 11:30 AM and he has been unable to urinate since, causing severe pain in the lower abdomen. He is not currently on Flomax or any antibiotics. - Related Data Home Medications Medication Instructions Recorded Confirmed Finasteride [Proscar] 5 mg PO DAILY 10/11/16 01/14/24 Levothyroxine Sodium [Synthroid] 50 mcg PO DAILY 10/11/16 01/14/24 Terazosin HCl [Hytrin] 10 mg PO HS 10/11/16 01/14/24 buPROPion HCL [Wellbutrin XL] 150 mg PO QAM 10/11/16 01/14/24 fluvoxaMINE MALEATE [Fluvoxamine 100 mg PO DAILY 10/11/16 01/14/24 Maleate] metFORMIN HCL [Glucophage] 1,000 mg PO DAILY 10/11/16 01/14/24 carvediloL [Coreg] 3.125 mg PO BID 01/10/24 01/14/24 Previous Rx's Medication Instructions Recorded Acetaminophen-Codeine 300-30mg 1 tab PO Q4H PRN 3 Days #18 tablet 10/28/23 [Tylenol w/codeine #3] HYDROcodone/APAP 5-325MG [[place] 1 tab PO Q6HR PRN #28 tab 01/14/24 5-325] Sennosides/Docusate Sodium 2 each PO DAILY PRN #30 tablet 01/14/24 [Senna-S 8.6-50 mg Tablet] cefaDROXiL [Duricef] 500 mg PO Q12HR 3 Days #6 cap 01/14/24 Tamsulosin [Flomax] 0.4 mg PO DAILY #15 cap 01/28/24 Allergies Allergy/AdvReac Type Severity Reaction Status Date / Time No Known Allergies Allergy Verified 01/28/24 08:30 Review of Systems ROS Statement: Those systems with pertinent positive or pertinent negative responses have been documented in the HPI. ROS Other: All systems not noted in ROS Statement are negative. Past Medical History Past Medical History: Coronary Artery Disease (CAD), Cancer, Diabetes Mellitus, Hyperlipidemia, Hypertension, Osteoarthritis (OA), Sleep Apnea/CPAP/BIPAP Additional Past Medical History / Comment(s): chronic back pain radiating tati legs to knee area,compression fx L1 Mar 2023,edema tati lower extremitiesC-PAP , SKIN CANCER, urinary catheter History of Any Multi-Drug Resistant Organisms: None Reported Past Surgical History: Hernia Repair, Tonsillectomy Additional Past Surgical History / Comment(s): COLONOSCOPY , HIATAL HERNIA REPAIR , TATI CARPAL TUNNEL RELEASE , ARTHROSCOPIC RIGHT SHOULDER,stabalization of compression fx L1 Past Anesthesia/Blood Transfusion Reactions: No Reported Reaction Additional Past Anesthesia/Blood Transfusion Reaction / Comment(s): no hx blood transfsuion Past Psychological History: Anxiety, Depression Smoking Status: Former smoker Past Alcohol Use History: None Reported Past Drug Use History: None Reported - Past Family History Brother(s) Family Medical History: Cancer General Exam Limitations: no limitations General appearance: alert, in no apparent distress Head exam: Present: atraumatic, normocephalic, normal inspection Respiratory exam: Present: normal lung sounds bilaterally. Absent: respiratory distress, wheezes, rales, rhonchi, stridor Cardiovascular Exam: Present: regular rate, normal rhythm, normal heart sounds. Absent: systolic murmur, diastolic murmur, rubs, gallop, clicks GI/Abdominal exam: Present: soft, tenderness (suprapubic), normal bowel sounds. Absent: distended Neurological exam: Present: alert, oriented X3, CN II-XII intact Psychiatric exam: Present: normal affect, normal mood Skin exam: Present: warm, dry, intact, normal color. Absent: rash Course Vital Signs 01/28/24 08:22 Temperature 97.7 F Pulse Rate 91 Respiratory 18 Rate Blood Pressure 112/65 O2 Sat by Pulse 96 Oximetry Medical Decision Making - Medical Decision Making This is a 73 year old male who presents to the emergency department for urinary retention. Was pt. sent in by a medical professional or institution? @ -No Did you speak to anyone other than the patient for history? @ -No Did you review nursing and triage notes? @ -Yes, and I agree, it is accurate with regards to the patient's symptoms. Were old charts reviewed? @ -No Differential Diagnosis? @ -UTI, blood clot, BPH, stricture, this is not meant to be an all-inclusive list. EKG interpreted by me (3pts min.)? @ -Not obtained X-rays interpreted by me (1pt min.)? @ -Not obtained CT interpreted by me (1pt min.)? @ -Not obtained U/S interpreted by me (1pt. min.)? @ -Not obtained What testing was considered but not performed? (CT, X-rays, U/S, labs)? Why? @ -None What meds were considered but not given? Why? @ -None Did you discuss the management of the patient with other professionals? @ -No Did you reconcile home meds? @ -No Was smoking cessation discussed for >3mins.? @ -No Was critical care preformed (if so, how long)? @ -No Were there social determinants of health that impacted care today? How? (Homelessness, low income, unemployed, alcoholism, drug addiction, transportation, low edu. Level, literacy, decrease access to med. care, fdc, rehab)? @ -No Was there de-escalation of care discussed even if they declined? (Discuss DNR or withdrawal of care, Hospice)? @ -No What co-morbidities impacted this encounter? (DM, HTN, Smoking, COPD, CAD, Cancer, CVA, Hep., AIDS, mental health diagnosis, sleep apnea, morbid obesity)? @ -None Was patient admitted / discharged? @ -Discharged. Bladder scan performed demonstrating 760 mL of urine. Cintron catheter subsequently inserted. Greater than 1 L of urine was then drained and patient has significant relief in symptoms afterwards. Urinalysis negative for signs of infection. Will start the patient on Flomax and a prescription for this was provided. Advised he follow back up with urology. Patient discharged home in stable condition. Case discussed with ED attending Dr. Perez. Return precautions reviewed in depth, the patient is instructed to return to the emergency department with any new, worsening, or concerning symptoms. Patient verbalized understanding. Undiagnosed new problem with uncertain prognosis? @ -None Drug Therapy requiring intensive monitoring for toxicity (Heparin, Nitro, Insulin, Cardizem)? @ -None Were any procedures done? @ -None Diagnosis/symptom? @ -Urinary retention Acute, or Chronic, or Acute on Chronic? @ -Acute Uncomplicated (without systemic symptoms) or Complicated (systemic symptoms)? @ -Uncomplicated Side effects of treatment? @ -None Exacerbation, Progression, or Severe Exacerbation] @ -Not applicable Poses a threat to life or bodily function? @ -No - Lab Data Lab Results 01/28/24 Range/Units 08:49 Urine Color Light Yellow Urine Appearance Clear (Clear) Urine pH 5.0 (5.0-8.0) Ur Specific Brick 1.020 (1.001-1.035) Urine Protein Negative (Negative) Urine Glucose (UA) Negative (Negative) Urine Ketones Negative (Negative) Urine Blood Negative (Negative) Urine Nitrite Negative (Negative) Urine Bilirubin Negative (Negative) Urine Urobilinogen <2.0 (<2.0) mg/dL Ur Leukocyte Esterase Negative (Negative) Disposition Clinical Impression: Urinary retention Disposition: HOME SELF-CARE Instructions (If sedation given, give patient instructions): Urinary Retention in Men (ED) Additional Instructions: Return to the emergency department with any new, worsening, or concerning symptoms. Begin taking the Flomax once daily. Follow back up with urology. Prescriptions: Tamsulosin [Flomax] 0.4 mg PO DAILY #15 cap Is patient prescribed a controlled substance at d/c from ED?: No Referrals: Kelly Nguyen DO [Primary Care Provider] - 1-2 days Time of Disposition: 09:19
[2024-01-28 09:07] LABS: Appearance,Urine Clear (Clear); Bilirubin,Urine Negative (Negative); Blood,Urine Negative (Negative); Color,Urine Light Yellow; Glucose,Urine (UA) Negative (Negative); Ketones,Urine Negative (Negative); Leukocyte Esterase,Urine Negative (Negative); Nitrite,Urine Negative (Negative); Protein,Urine Negative (Negative); Urobilinogen,Urine <2.0 mg/dL (<2.0)
[2024-01-28 09:37] VITALS: BP 115/72; PULSE 88; TEMP 97.9
== END 2024-01-28 09:36 | disposition home or self-care (01) ==
LOC: EC 08:17
DX: R33.9 Retention of urine, unspecified (principal); Z87.891 Personal history of nicotine dependence
CPT/HCPCS: 51702; 51798; 81003; 99283